=== PATIENT | male | born 1960 | race Caucasian/White ===

== ENCOUNTER 2021-05-13 21:55 | Inpatient (IN) ==
[2021-05-13 22:39] LABS: Basophils # (auto) 0.02 K/uL (0-0.2); Basophils % (auto) 0.3 %; Eosinophils # (auto) 0.14 K/uL (0-0.5); Hematocrit (blood only) 42.1 % (42-52); Hemoglobin 14.4 g/dL (14.0-18.0); Immature Granulocytes # (auto) 0.02 K/uL (0.00-0.02); Immature Granulocytes % (auto) 0.3 %; Lymphocytes # (auto) 2.42 K/uL (1.2-3.4); Lymphocytes % (auto) 34.6 %; Mean Corpuscular Hemoglobin 31.9 pg (25-34); Mean Corpuscular Hgb Conc 34.2 g/dL (32-36); Mean Corpuscular Volume 93.3 fL (80-100); Mean Platelet Volume 8.5 fL (7.4-10.4); Monocytes # (auto) 0.53 K/uL (0.11-0.59); Monocytes % (auto) 7.6 %; Neutrophils # (auto) 3.86 K/uL (1.4-6.5); Neutrophils % (auto) 55.2 %; Platelet Count 291 K/uL (130-400); RDW Coefficient of Variation 13.3 % (11.5-14.5); RDW Standard Deviation 45.8 fL (36.4-46.3); Red Blood Count 4.51 M/uL (4.7-6.1); White Blood Count 6.99 K/uL (4.8-10.8)
[2021-05-13 22:51] LABS: Partial Thromboplastin Time 25.8 Seconds (21.0-31.0); Prothrombin Time 10.1 Seconds (9.0-12.0)
[2021-05-13 22:58] LABS: Albumin Level 3.7 gm/dl (3.4-5.0); BUN Creatinine Ratio 10.4 (10-20); Calcium 8.4 mg/dl (8.5-10.1); Creatinine Clr Calc Pharmacy 76.3 ml/min; Est GFR (African American) 88.4 ml/min; Est GFR (Non-African American) 76.2 ml/min; Potassium 3.7 mmol/L (3.5-5.1)
[2021-05-13] MEDS ORDERED: fentaNYL citrate 100 MCG/2 ML VIAL IV STA (22:59)
[2021-05-13 23:01] LABS: Bilirubin,Total 0.3 mg/dl (0.2-1); Globulin 3.8 gm/dl (2.5-4.0); Total Protein 7.5 gm/dl (6.4-8.2)
--- NOTE | 2021-05-14 01:28 | History & Physical Report ---
Date of Service May 14, 2021 Assessment & Plan (1) Dislocated hip: Mr. Ford is a 61 yo gentleman who underwent a total left hip replacement two months ago who presented to [facility] after an acute dislocation of the artificial left hip. - left lower extremity remains neurovascularly intact - Ortho consulted - plan to reduce left hip in morning - NPO in anticipation of procedure - NSS at 125mls/hr. Ivey catheter placed as patient cannot get out of bed - prn morphine and Dilaudid ordered prn for analgesia (2) Alcoholic intoxication: - blood alcohol level elevated to 302mg/dl - NSS at 125 mls/hr. - patient has co-existent alcohol use disorder (21 + drinks per week) - AWSS protocol to monitor for withdrawal symptoms - folate and B12 level pending DVT ppx: Lovenox SQ Dispo: Med surg w. tele Diet: NPO Code: Full History of Present Illness Primary Care Provider: NO PCP Mr. Ford is a 61 yo gentleman who underwent a total left hip replacement 2 months ago - the procedure was apparently done by Dr. Cleaning from [facility]. Patient states the indication was for osteoarthritis. Earlier this evening, his dropped something - he bent down to pick it up for her, and his left hip popped, after which he had immediate onset of pain. His then called an ambulance. Prior to this incident, he says he has been rehabbing his left hip without difficulty. He is generally uncomfortable but has a difficult time articulating the nature of the discomfort. Social Hx: he is an occasional smoker. He drinks 3 beers per day. In the ED, he was afebrile with normal HR and BP. His WBC was normal, coags normal; calcium mildly low at 8.4. AST mildly elevated to 38. Eoth level was 302mg/dl. Xray of left hip showed a dislocation. He was given 50mcg of Iv fentanyl. Allergies Allergy/AdvReac Type Severity Reaction Status Date / Time No Known Allergies Allergy Verified 05/13/21 23:04 Home Medications Medication Instructions Recorded Confirmed Type cholecalciferol (vitamin D3) 50 mcg PO DAILY 05/13/21 05/13/21 History [Vitamin D3] ibuprofen 400 mg PO Q6H PRN 05/13/21 05/13/21 History turmeric 400 mg PO DAILY 05/13/21 05/13/21 History Past Med/Surg History Medical History Alcoholism Social History Smoking Status: Never smoker Hx Alcohol Use: Yes Alcohol type: beer Hx Substance Use: Yes Last Used Substance: Hours (ago) Preferred Language: Liberian Communication Ability: Effective Watch Technician Required: No Beliefs That Will Affect Care: None Current Living Situation: Significant Other Other Information That Helps Us Care for You: No Feels Safe at Home: Yes Safety Concerns: Feels Safe At This Time Assistive Devices: None Review of Systems Review of Systems: All systems reviewed & are unremarkable except as noted in HPI & below Physical Exam Constitutional: WD/WN, vitals as above cooperative Eyes: + anicteric sclerae ENMT: external ear and nose normal, oropharynx normal Neck: normal visual inspection and trachea midline Respiratory: normal respiratory effort, lungs clear to auscultation Cardiovascular: RRR, no murmur, no edema Heart Sounds: normal S1 and normal S2 Extremities: no pedal edema Gastrointestinal (Abdomen): normal bowel sounds, soft, nontender, no hepatosplenomegaly Musculoskeletal: Left LE is internally rotated. Patient does have intact sensation and peripheral pulses Skin: no rashes, warm and dry Psychiatric: A+Ox3, euthymic affect Results & Data Results & Data ([facility]) Vital Signs (Past 12 Hours) Vital Signs Temp Pulse Pulse Resp BP BP Pulse Ox 05/13/21 23:41 92 H 19 141/70 H 92 05/13/21 22:40 84 20 94 05/13/21 22:30 77 20 96 05/13/21 22:20 71 22 95 05/13/21 22:10 80 23 95 05/13/21 22:09 82 22 95 05/13/21 22:00 36.7 C 78 18 137/84 96 05/13/21 21:59 88 19 137/84 96 Supervising Physician Co-Signing Physician Notes Attending addendum: I have physically seen this patient, have supervised the medical residents activities, and agree with the H&P unless as otherwise noted. Assessment and Plan: Dislocated left total hip arthroplasty- NPO NSS at 125 mL's per hour Ivey catheter morphine and Dilaudid as needed for pain control as noted Alcohol intoxication- Level on admission was 302 IV fluids as noted AWSS protocol Thiamine 100 mg p.o. daily Folate 1 mg p.o. daily Nephrocaps 1 p.o. daily Remaining orders and notations as noted Resident Activity Tracking Resident Involvement: Resident Care Provided Care Provided: Adult [facility]
[2021-05-14] MEDS ORDERED: HYDROmorphone INJ 0.5 MG/0.5 ML SYR IV PRN (02:10)
[2021-05-14] MEDS ORDERED: MoRPHine SULFATE 2 MG/ML CARP IV PRN (02:10)
[2021-05-14] MEDS ORDERED: LORazepam 1 MG/2 ML VIAL IV PRN (02:10)
[2021-05-14] MEDS: SODIUM CHLORIDE 0.9% 1000ML 1,000 ML IV SCH ×2 (02:32→09:51)
--- NOTE | 2021-05-14 07:13 | Emergency Department Note ---
History of Present Illness General Chief complaint: Hip Pain Time Seen by Provider: 05/13/21 22:05 Source: patient Mode of arrival: EMS Limitations: intoxication History of Present Illness Maximum Pain Intensity: 10 This patient is a 61-year-old male who presents to the emergency department for evaluation of a left hip injury. Patient had a recent hip replacement performed 2 months ago at [facility] in [place]. He states that this evening, he was bending down and felt a pop in his left hip. He developed a sudden pain in the hip and has been unable to walk. He had been doing well with his recove ry up to this point. He rates his pain a 9/10. Patient is an alcoholic and admits to drinking vodka and beer prior to coming in [facility]. He denies falling and striking his head or sustaining any other injuries. He states that he sat down on the floor after developing the pain in his hip. Home Medications Medication Instructions Recorded Confirmed Type cholecalciferol (vitamin D3) 50 mcg PO DAILY 05/13/21 05/13/21 History [Vitamin D3] ibuprofen 400 mg PO Q6H PRN 05/13/21 05/13/21 History turmeric 400 mg PO DAILY 05/13/21 05/13/21 History Allergies Allergy/AdvReac Type Severity Reaction Status Date / Time No Known Allergies Allergy Verified 05/13/21 23:04 Past Med/Surg History Medical History Alcoholism Social History Smoking Status: Never smoker Hx Alcohol Use: Yes Alcohol type: beer Hx Substance Use: Yes Last Used Substance: Hours (ago) Preferred Language: Mongolian Communication Ability: Effective Crm Solution Architect Required: No Beliefs That Will Affect Care: None Current Living Situation: Significant Other Other Information That Helps Us Care for You: No Feels Safe at Home: Yes Safety Concerns: Feels Safe At This Time Assistive Devices: None Review of Systems A total of 10 systems reviewed and were otherwise negative Physical Exam Vital Signs Vital Signs - 24 hr 05/13/21 21:59 05/13/21 22:00 05/13/21 22:09 Temperature 36.7 C Temperature Source Oral Pulse Rate 88 78 82 Pulse Rate [Right Finger] Pulse Rate from SpO2 Sensor 88 83 Pulse Rhythm Regular Pulse Strength Normal Respiratory Rate 19 18 22 Respiratory Effort / Characteristics Non-Labored Spontaneous Respiratory Depth Normal Respiratory Pattern Regular Blood Pressure 137/84 137/84 Blood Pressure [Right Arm] Blood Pressure Mean 101 101 Blood Pressure Mean [Right Arm] Blood Pressure Position Lying Pulse Oximetry 96 96 95 Oxygen Delivery Method Room Air Sepsis Recent Fever Within 48 Hours No Sepsis New/Unexplained Change in Mental Status No Sepsis Action Taken by Nursing No Action Required 05/13/21 22:10 05/13/21 22:20 05/13/21 22:30 Temperature Temperature Source Pulse Rate 80 71 77 Pulse Rate [Right Finger] Pulse Rate from SpO2 Sensor 81 76 75 Pulse Rhythm Pulse Strength Respiratory Rate 23 22 20 Respiratory Effort / Characteristics Respiratory Depth Respiratory Pattern Blood Pressure Blood Pressure [Right Arm] Blood Pressure Mean Blood Pressure Mean [Right Arm] Blood Pressure Position Pulse Oximetry 95 95 96 Oxygen Delivery Method Sepsis Recent Fever Within 48 Hours Sepsis New/Unexplained Change in Mental Status Sepsis Action Taken by Nursing 05/13/21 22:40 05/13/21 23:00 05/13/21 23:30 Temperature Temperature Source Pulse Rate 84 90 87 Pulse Rate [Right Finger] Pulse Rate from SpO2 Sensor 87 Pulse Rhythm Pulse Strength Respiratory Rate 20 23 22 Respiratory Effort / Characteristics Respiratory Depth Respiratory Pattern Blood Pressure Blood Pressure [Right Arm] Blood Pressure Mean Blood Pressure Mean [Right Arm] Blood Pressure Position Pulse Oximetry 94 Oxygen Delivery Method Sepsis Recent Fever Within 48 Hours Sepsis New/Unexplained Change in Mental Status Sepsis Action Taken by Nursing 05/13/21 23:41 05/13/21 23:43 05/14/21 00:00 Temperature Temperature Source Pulse Rate 79 93 H Pulse Rate [Right Finger] 92 H Pulse Rate from SpO2 Sensor Pulse Rhythm Pulse Strength Respiratory Rate 19 20 20 Respiratory Effort / Characteristics Non-Labored Respiratory Depth Normal Respiratory Pattern Blood Pressure 147/98 H Blood Pressure [Right Arm] 141/70 H Blood Pressure Mean 114 Blood Pressure Mean [Right Arm] 93 Blood Pressure Position Pulse Oximetry 92 Oxygen Delivery Method Room Air Sepsis Recent Fever Within 48 Hours Sepsis New/Unexplained Change in Mental Status Sepsis Action Taken by Nursing 05/14/21 00:30 Temperature Temperature Source Pulse Rate 100 H Pulse Rate [Right Finger] Pulse Rate from SpO2 Sensor Pulse Rhythm Pulse Strength Respiratory Rate Respiratory Effort / Characteristics Respiratory Depth Respiratory Pattern Blood Pressure Blood Pressure [Right Arm] Blood Pressure Mean Blood Pressure Mean [Right Arm] Blood Pressure Position Pulse Oximetry Oxygen Delivery Method Sepsis Recent Fever Within 48 Hours Sepsis New/Unexplained Change in Mental Status Sepsis Action Taken by Nursing VITALS: Vitals are noted on the nurse's note and reviewed by myself. GENERAL: This is a 61-year-old male, in no acute distress, well-developed well- nourished. SKIN: The skin was without rashes. EARS: External auditory canals clear, tympanic membranes pearly moses without erythema or effusion bilaterally. EYES: Pupils equal round and reactive to light and accommodation. NOSE: Patent, turbinates without inflammation or discharge. MOUTH: Mucous membranes moist. Tonsils are not enlarged. Pharynx without erythema or exudate. NECK: Supple without nuchal rigidity. HEART: Regular rate and rhythm without murmurs gallops or rubs. LUNGS: Clear to auscultation bilaterally without wheezes, rales or rhonchi. ABDOMEN: Positive bowel sounds x 4. Soft, nontender to palpation. MUSCULOSKELETAL: The left leg is shortened and internally rotated. Patient has tenderness to palpation of the left hip. Patient is unable to move at the left hip. NEURO: Patient was alert and oriented to person place and time. Distal sensation intact. Course Consultations Consultation #1: Dr. [facility] Consultation #2: Dr. Bernal [facility] hospitalist Administered Medications Sodium Chloride (Nss 1000ml) 1,000 mls @ 125 mls/hr IV .Q8H [facility] Stop: 06/13/21 02:09 Last Admin: 05/14/21 02:32 Dose: 125 mls/hr Documented by: [id number] Discontinued Medications Fentanyl Citrate (Fentanyl Citrate 100 Mcg/2 Ml Vial) 50 mcg IV NOW STA Stop: 05/13/21 23:00 Last Admin: 05/13/21 23:08 Dose: 50 mcg Documented by: [id number] Medical Decision Making Differential Diagnosis Differential diagnosis includes femur fracture, hip dislocation, pelvic fracture, among others. Home Medications Current Medication List: was personally reviewed by me Laboratory Data Attestation: I reviewed the patient's lab results. Result diagrams: 05/13/21 22:30 05/13/21 22:30 Lab Results 05/13/21 05/13/21 05/13/21 Range/Units 22:30 22:30 22:30 WBC 6.99 (4.8-10.8) K/uL RBC 4.51 L (4.7-6.1) M/uL Hgb 14.4 (14.0-18.0) g/dL Hct 42.1 (42-52) % MCV 93.3 (80-100) fL MCH 31.9 (25-34) pg MCHC 34.2 (32-36) g/dL RDW Std Deviation 45.8 (36.4-46.3) fL RDW Coeff of Josue 13.3 (11.5-14.5) % Plt Count 291 (130-400) K/uL MPV 8.5 (7.4-10.4) fL Immature Gran % (Auto) 0.3 % Neut % (Auto) 55.2 % Lymph % (Auto) 34.6 % [place] % (Auto) 7.6 % Eos % (Auto) 2.0 % Baso % (Auto) 0.3 % Neut # (Auto) 3.86 (1.4-6.5) K/uL Lymph # (Auto) 2.42 (1.2-3.4) K/uL [place] # (Auto) 0.53 (0.11-0.59) K/uL Eos # (Auto) 0.14 (0-0.5) K/uL Baso # (Auto) 0.02 (0-0.2) K/uL Immature Gran # (Auto) 0.02 (0.00-0.02) K/uL PT 10.1 (9.0-12.0) Seconds INR 1.0 (0.9-1.1) APTT 25.8 (21.0-31.0) Seconds PTT Ratio 1.0 Sodium (136-145) mmol/L Potassium (3.5-5.1) mmol/L Chloride (98-107) mmol/L Carbon Dioxide (21-32) mmol/L Anion Gap (3-11) BUN (7-18) mg/dl Creatinine (0.6-1.4) mg/dl Est Cr Clr Drug Dosing ml/min Est GFR ( Amer) ml/min Est GFR (Non-Af Amer) ml/min BUN/Creatinine Ratio (10-20) Glucose (70-99) mg/dl Calcium (8.5-10.1) mg/dl Total Bilirubin (0.2-1) mg/dl AST (15-37) U/L ALT (12-78) U/L Alkaline Phosphatase (45-117) U/L Total Protein (6.4-8.2) gm/dl Albumin (3.4-5.0) gm/dl Globulin (2.5-4.0) gm/dl Albumin/Globulin Ratio (0.9-2) Ethyl Alcohol mg/dL 302.6 H (0-3) mg/dl COVID-19 Eval Order SARS-CoV-2 (PCR) (Negative) 05/13/21 05/14/21 05/14/21 Range/Units 22:30 00:02 00:02 WBC (4.8-10.8) K/uL RBC (4.7-6.1) M/uL Hgb (14.0-18.0) g/dL Hct (42-52) % MCV (80-100) fL MCH (25-34) pg MCHC (32-36) g/dL RDW Std Deviation (36.4-46.3) fL RDW Coeff of Josue (11.5-14.5) % Plt Count (130-400) K/uL MPV (7.4-10.4) fL Immature Gran % (Auto) % Neut % (Auto) % Lymph % (Auto) % [place] % (Auto) % Eos % (Auto) % Baso % (Auto) % Neut # (Auto) (1.4-6.5) K/uL Lymph # (Auto) (1.2-3.4) K/uL [place] # (Auto) (0.11-0.59) K/uL Eos # (Auto) (0-0.5) K/uL Baso # (Auto) (0-0.2) K/uL Immature Gran # (Auto) (0.00-0.02) K/uL PT (9.0-12.0) Seconds INR (0.9-1.1) APTT (21.0-31.0) Seconds PTT Ratio Sodium 140 (136-145) mmol/L Potassium 3.7 (3.5-5.1) mmol/L Chloride 107 (98-107) mmol/L Carbon Dioxide 29 (21-32) mmol/L Anion Gap 4.0 (3-11) BUN 11 (7-18) mg/dl Creatinine 1.05 (0.6-1.4) mg/dl Est Cr Clr Drug Dosing 76.3 ml/min Est GFR ( Amer) 88.4 ml/min Est GFR (Non-Af Amer) 76.2 ml/min BUN/Creatinine Ratio 10.4 (10-20) Glucose 105 H (70-99) mg/dl Calcium 8.4 L (8.5-10.1) mg/dl Total Bilirubin 0.3 (0.2-1) mg/dl AST 38 H (15-37) U/L ALT 54 (12-78) U/L Alkaline Phosphatase 58 (45-117) U/L Total Protein 7.5 (6.4-8.2) gm/dl Albumin 3.7 (3.4-5.0) gm/dl Globulin 3.8 (2.5-4.0) gm/dl Albumin/Globulin Ratio 1.0 (0.9-2) Ethyl Alcohol mg/dL (0-3) mg/dl COVID-19 Eval Order Covid19 at [facility] SARS-CoV-2 (PCR) NEGATIVE (Negative) Imaging Data Attestation: I personally reviewed and interpreted this imaging study as follows: My Impression: LEFT HIP: Dislocation of left hip arthroplasty. ECG Data Attestation: I personally reviewed and interpreted this ECG as follows: Indication: + other Rate (beats per minute): 72 Rhythm: + normal sinus ECG Intervals/blocks: + Normal QRS ECG ST segments: + Normal ST segments Change: no significant change MDM Narrative Continuous cardiac/vascular sonographer: Order was placed for continuous cardiac/vascular sonographer. Patient was placed on the cardiac/vascular sonographer. Patient was noted to be in normal sinus rhythm at an initial rate of 88 bpm. The patient is a 61-year-old male who presents today for evaluation of left hip pain. Patient found to have a dislocation of his left hip arthroplasty. Unfortunately, patient is intoxicated and it would be 10 hours until he is clear for sedation. Patient is alcohol dependent and I am concerned there will also be an element of withdrawal. Given these complicating factors, I did speak with orthopedics who recommended admitting the patient medically and they will take him to the OR tomorrow. Patient was agreeable with the plan. The case was discussed with the [facility] hospitalist who agreed to evaluate the patient for further care. Impression & Plan Hip dislocation, left, Alcoholic intoxication Discharge Plan Visit Data Chief Complaint: Hip Pain ED Provider: Dustin Montez ED Midlevel Provider: Justine Vora Discharge Problem: Hip dislocation, left, Alcoholic intoxication Patient Disposition: Admitted As Inpatient Discharge Instructions Interventions: ED Discharge Assessment Last Done: 05/14/21 01:43 Discharge Problem: Hip dislocation, left Qualifiers: Encounter type: initial encounter Qualified Code(s): S73.005A - Unspecified d islocation of left hip, initial encounter Alcoholic intoxication Qualifiers: Complication of substance-induced condition: uncomplicated Qualified Code(s): F10.920 - Alcohol use, unspecified with intoxication, uncomplicated
--- NOTE | 2021-05-14 07:15 | XRay Report ---
XR hip LT min 2V CLINICAL HISTORY: left hip injury, recent replacement COMPARISON: None. DISCUSSION: 2 views reveal a dislocated total left hip arthroplasty. No acute fractures are visualize d. IMPRESSION: Posterior superior dislocation of the patient's total left hip arthroplasty ACT 112: Negative or not required by law. Electronically signed by: Thien Tidwell M.D. 05/14/2021 7:14 AM
[2021-05-14] MEDS ORDERED: KETOROLAC 30 MG/ML VIAL IV ONE (08:06)
[2021-05-14 08:16] LABS: Albumin Level 3.6 gm/dl (3.4-5.0); BUN Creatinine Ratio 10.7 (10-20); Calcium 8.1 mg/dl (8.5-10.1); Creatinine Clr Calc Pharmacy 94.2 ml/min
--- NOTE | 2021-05-14 08:17 | Orthopedic Consultation ---
Date of Consultation May 14, 2021 Assessment & Plan (1) Hip dislocation, left: Left GIUSEPPE dislocation. No obvious fractures are identified. X-rays reviewed with . Maintain n.p.o. status. Plan for close reduction of dislocated left GIUSEPPE today. Supervising Physician Co-Signing Physician Notes Patient seen and examined. Agree with PAT Denton's note as above. Patient has a left dislocated total hip arthroplasty. No evidence of periprosthetic fracture or loosening of the implants. I recommended urgent reduction to reduce pain and restore the ability to ambulate. Risks, benefits, and alternatives of the procedure were explained in detail. Risks include fracture, hardware displacement, irreducible dislocation requiring open reduction, recurrent dislocation, persistent pain or stiffness, or need for further surgery. The patient understands all of this and wishes to proceed. Informed consent was obtained. History of Present Illness Reason for Consultation: left GIUSEPPE dislocation Attending Physician: Philip Mosley History of Present Illness Patient is a 61-year-old male who states that he underwent left total hip arthroplasty by Dr. Cleaning in early January of this year. Patient apparently had a normal recovery and has had no problems with his hip. Patient states he does not remember what happened. He apparently was drinking alcohol and thinks he had fallen down. He does not remember anything about the incident. He does remember feeling the pain after the incident and was having difficulty ambulating because of it. He was brought into the emergency room here at [facility] where after x-rays, was found that he had a dislocated left GIUSEPPE. The patient's alcohol level was significant enough that the emergency room was unable to give him any conscious sedation due to risk factors to do a closed reduction of the hip. He was admitted to the hospitalist service and we have been asked to take care of his left GIUSEPPE dislocation. Currently this morning he is awake and alert and oriented x3. He continues to not remember what happened with the incident however he is complaining of left hip pain and is hoping to get his hip relocated soon. No other complaints at this time. Allergies Allergy/AdvReac Type Severity Reaction Status Date / Time No Known Allergies Allergy Verified 05/13/21 23:04 Home Medications Medication Instructions Recorded Confirmed Type cholecalciferol (vitamin D3) 50 mcg PO DAILY 05/13/21 05/13/21 History [Vitamin D3] ibuprofen 400 mg PO Q6H PRN 05/13/21 05/13/21 History turmeric 400 mg PO DAILY 05/13/21 05/13/21 History Patient History Medical History Alcoholism Social History Smoking Status: Never smoker Hx Alcohol Use: Yes Alcohol type: beer Hx Substance Use: Yes Last Used Substance: Hours (ago) Preferred Language: Irish Communication Ability: Effective Auto Garage Mechanic Required: No Beliefs That Will Affect Care: None Current Living Situation: Significant Other Other Information That Helps Us Care for You: No Feels Safe at Home: Yes Safety Concerns: Feels Safe At This Time Assistive Devices: None Review of Systems Review of Systems: All systems reviewed & are unremarkable except as noted in HPI & below Physical Exam Physical Exam: Patient is currently awake and alert. Oriented x3. Complaining of left hip pain. Pleasant and cooperative. No acute distress. On examination of his left lower extremity, the extremity is shortened and internally rotated compared to the right. Any attempts to move the left hip causes him severe pain. He is nontender at the left knee and range of motion is deferred secondary to left hip dislocation. He has good range of motion of his left ankle and toes and sensation is intact. Right lower extremity is unaffected and range of motion is within normal limits. Upper extremities are nontender at the shoulders, elbows, and wrists. Range of motion is within normal limits. Distal pulses are equal bilaterally of the upper and lower extremities. There is no gross motor or sensory loss seen at this time. Results & Data ([facility]) Vital Signs (Past 12 Hours) Vital Signs Temp Pulse Pulse Pulse Resp BP BP 05/14/21 04:09 36.9 C 103 H 18 158/80 H 05/14/21 02:13 36.7 C 102 H 21 160/95 H 05/14/21 02:11 102 H 05/14/21 01:30 98 H 24 147/96 H 05/14/21 01:00 102 H 25 H 05/14/21 00:30 100 H 05/14/21 00:00 93 H 20 05/13/21 23:43 79 20 147/98 H 05/13/21 23:41 92 H 19 141/70 H 05/13/21 23:30 87 22 05/13/21 23:00 90 23 05/13/21 22:40 84 20 05/13/21 22:30 77 20 05/13/21 22:20 71 22 05/13/21 22:10 80 23 05/13/21 22:09 82 22 05/13/21 22:00 36.7 C 78 18 137/84 05/13/21 21:59 88 19 137/84 Pulse Ox 05/14/21 04:09 100 05/14/21 02:13 97 05/14/21 02:11 05/14/21 01:30 05/14/21 01:00 05/14/21 00:30 05/14/21 00:00 05/13/21 23:43 05/13/21 23:41 92 05/13/21 23:30 05/13/21 23:00 05/13/21 22:40 94 05/13/21 22:30 96 05/13/21 22:20 95 05/13/21 22:10 95 05/13/21 22:09 95 05/13/21 22:00 96 05/13/21 21:59 96 Diagnostic Findings Patient: TOMMY JOHN AAdmit Date: 05/14/21MR#: [id number][facility] [id number] [facility][id number]: [facility]: 1960[facility] [place], [place] [address]Vju: 61Location: 2WSex: MRoom/Bed: [address] Phy: Shay eBrnal M.D.Diagnosis: DISLOCATED HIPPri Phy: PCP,NOService Date: 05/13/21Fam Phy:Interpreting Phy: Thien Tidwell MDAdmit Phy: Rea Hernandez MD Ordering Phy: Justine Vora PA-C cc: ~ XR hip LT min 2V CLINICAL HISTORY: left hip injury, recent replacement COMPARISON: None. DISCUSSION: 2 views reveal a dislocated total left hip arthroplasty. No acute fractures are visualized. IMPRESSION: Posterior superior dislocation of the patient's total left hip arthroplasty (1) Hip dislocation, left Encounter type: initial encounter Qualified Code(s): S73.005A - Unspecified dislocation of left hip, initial encounter
[2021-05-14 08:19] LABS: Albumin Globulin Ratio 0.9 (0.9-2); Bilirubin,Total 0.3 mg/dl (0.2-1); Globulin 3.9 gm/dl (2.5-4.0); Total Protein 7.5 gm/dl (6.4-8.2)
[2021-05-14 08:22] LABS: Folate (Folic Acid) 8.1 ng/ml (>5.38)
[2021-05-14] MEDS ORDERED: fentaNYL citrate 100 MCG/2 ML VIAL IV PRN (13:53)
[2021-05-14] MEDS ORDERED: HYDROmorphone INJ 2 MG/ML SYR/VIAL IV PRN (13:53)
[2021-05-14] MEDS ORDERED: ONDANSETRON INJ 2 MG/ML 2 ML VIAL IV PRN ×2 (13:53→16:54)
[2021-05-14] MEDS ORDERED: ATROPINE SULFATE 0.1 MG/ML 10ML SYR IV PRN (13:53)
[2021-05-14] MEDS ORDERED: ePHEDrine sulfate 50 MG/ML AMP IV PRN (13:53)
--- NOTE | 2021-05-14 13:53 | Anesthesiology Consultation ---
Date of Service May 14, 2021 Assessment & Plan Chart Review Chart Review: Acceptable Risk for Surgery Consults Requested none History Surgery Operation Date: 05/14/21 12:55 Proposed Procedures p Left Closed Reduction Dislocated Total Hip Arthroplasty - Francis Mascorro M.D. Height/Weight Height: 5 ft 10 in Weight: 81.1 kg Allergies Allergy/AdvReac Type Severity Reaction Status Date / Time No Known Allergies Allergy Verified 05/13/21 23:04 Medications Home Medications Medication Instructions Recorded Confirmed Last Taken cholecalciferol (vitamin D3) 50 mcg PO DAILY 05/13/21 05/13/21 05/13/21 [Vitamin D3] ibuprofen 400 mg PO Q6H PRN 05/13/21 05/13/21 Unknown turmeric 400 mg PO DAILY 05/13/21 05/13/21 05/13/21 Active Medications Generic Name Dose Route Start Last Admin Trade Name Freq PRN Reason Stop Dose Admin Sodium Chloride 1,000 mls @ 125 mls/hr 05/14/21 02:10 05/14/21 09:51 Nss 1000ml IV 06/13/21 02:09 125 mls/hr .Q8H ERICKA Administration NPO Date Last Intake of Fluids: 05/14/21 Time Last Intake of Fluids: 00:01 Date Last Intake of Solids: 05/14/21 Time Last Intake of Solids: 00:01 Past Medical History Medical History Alcoholism Social History Smoking Status: Never smoker Hx Alcohol Use: Yes Alcohol type: beer alcohol intake frequency: 3 or more drinks per day Hx Substance Use: Yes substance use type: marijuana Last Used Substance: Hours (ago) Physical Exam Vital Signs Last Vital Signs Temp 37.3 C 05/14/21 13:40 Pulse 101 H 05/14/21 13:40 Resp 20 05/14/21 13:40 BP 170/98 H 05/14/21 13:40 Pulse Ox 95 05/14/21 13:40 Testing Laboratory Results 05/13/21 22:30 05/14/21 06:59 PT 10.1 Seconds (9.0-12.0) 05/13/21 22:30 INR 1.0 (0.9-1.1) 05/13/21 22:30 APTT 25.8 Seconds (21.0-31.0) 05/13/21 22:30
--- NOTE | 2021-05-14 15:03 | History & Physical Bridge Note ---
Date of Service May 14, 2021 History & Physical Bridge Note I have examined the patient, reviewed the History & Physical and in the interval since the performance of the History & Physical I have noted the following changes of clinical significance: no changes noted
[2021-05-14] MEDS ORDERED: PROPOFOL IV EMULSION 10 MG/ML 20 ML VIAL IV ONE (15:07)
[2021-05-14] MEDS ORDERED: MIDAZOLAM HCL 1 MG/ML 2ML VIAL ONE (15:09)
[2021-05-14] MEDS ORDERED: KETAMINE 50 MG/5 ML SYRINGE ONE (15:10)
[2021-05-14] MEDS ORDERED: fentaNYL citrate 100 MCG/2 ML VIAL ONE (15:10)
[2021-05-14] MEDS ORDERED: DEXAMETHASONE SOD INJ 4 MG/ML VIAL ONE (15:25)
--- NOTE | 2021-05-14 15:49 | Post Operative Brief Note ---
Immediate Post Op Note v1 Date of Surgery May 14, 2021 Pre & Post Diagnosis Operation Date: 05/14/21 12:55 Pre-Op Diagnosis: Left hip dislocated total hip arthroplasty Post-Op Diagnosis: Left hip dislocated total hip arthroplasty I identified the patient and participated in the time-out.: Yes Procedure Operation Date: 05/14/21 12:55 Actual Procedures Left Hip Closed Reduction Dislocated Total Hip Arthroplasty - Francis Mascorro M.D. Surgeon Francis Mascorro Aligning Inspector Morteza Grey PA-C Estimated Blood Loss 0 Findings Consistent with Post-Op Diagnosis
--- NOTE | 2021-05-14 15:55 | Operative Report ---
Post Operative Report Pre & Post Diagnosis Operation Date: 05/14/21 12:55 Pre-Op Diagnosis: Left hip dislocated total hip arthroplasty Post-Op Diagnosis: Left hip dislocated total hip arthroplasty I identified the patient and participated in the time-out.: Yes Procedure Operation Date: 05/14/21 12:55 Actual Procedures Left Hip Closed Reduction of Dislocated Total Hip Arthroplasty (11220) - Francis Mascorro M.D. Surgeon Francis Mascorro Skid Adzer Morteza Grey PA-C Estimated Blood Loss 0 Findings Consistent with Post-Op Diagnosis Specimens None Drains None Anesthesia Type MAC Complications none Disposition Disposition: Recovery Room Indications Mr. Ford is a 61-year-old male who previously underwent a left total hip arthroplasty about [address] Cleaning. He was intoxicated and fell and dislocated his left total hip, but has no recollection of the event. History, clinical exam, and imaging were consistent with the above diagnosis. Risks, benefits, and alternatives of surgery were explained in detail. The patient understood all this and wished to proceed. Description of Procedure Sedation was then provided by the anesthesia staff. After adequate anesthesia had been obtained, I had an assistant store manager sales hold counter pressure on the ASIS well I pulled longitudinal traction on the femur with the hip and knee in flexion. I internally rotated and adducted the hip while pulling longitudinal traction, and was able to visualize and palpate reduction of the hip joint. I then extended the leg and examined leg lengths. Leg length was restored to normal. Postreduction x-rays confirmed concentric reduction of the total hip arthroplasty, without evidence of fracture or displacement of the prosthetic components. Due to the complex nature of the procedure, the procedure was performed with the operational assistance of Morteza Grey PA-C. The assistant store manager sales, under direct supervision, was involved in the performance of all aspects of the procedure including patient positioning, counter traction, and immobilizer application. I attest to the content of the Intraoperative Record and any orders documented therein. Any exceptions are noted below.
--- NOTE | 2021-05-14 15:57 | Fluoroscopy Report ---
FL hip LT 1V CLINICAL HISTORY: Left hip closed reduction. COMPARISON STUDY: Left hip radiographs May 13, 2021. FLUOROSCOPY TIME: 1 second. FLUOROSCOPIC IMAGES: 1 FINDINGS: Fluoroscopy was provided during closed reduction of the left hip arthroplasty. Alignment is anatomic. The femoral component is seated within the acetabular cup. IMPRESSION: Fluoroscopy provided during closed reduction of the left hip arthroplasty. ACT 112: Negative or not required by law. Electronically signed by: Jimenez Cason M.D. 05/14/2021 3:55 PM
--- NOTE | 2021-05-14 16:02 | Anesthesiology Progress Note ---
Date of Service May 14, 2021 Anesthesia Post Procedure Vital Signs Vital Signs: Temp Pulse Pulse Pulse Pulse Resp BP 05/14/21 15:55 91 H 14 05/14/21 15:45 99.0 F 102 H 22 05/14/21 13:40 99.1 F 101 H 20 05/14/21 11:18 98.8 F 105 H 18 05/14/21 08:43 98.1 F 105 H 19 05/14/21 08:00 103 H 05/14/21 04:09 98.4 F 103 H 18 05/14/21 02:13 98.1 F 102 H 21 05/14/21 02:11 102 H 05/14/21 01:30 98 H 24 147/96 H 05/14/21 01:00 102 H 25 H 05/14/21 00:30 100 H 05/14/21 00:00 93 H 20 05/13/21 23:43 79 20 147/98 H 05/13/21 23:41 92 H 19 05/13/21 23:30 87 22 05/13/21 23:00 90 23 05/13/21 22:40 84 20 05/13/21 22:30 77 20 05/13/21 22:20 71 22 05/13/21 22:10 80 23 05/13/21 22:09 82 22 05/13/21 22:00 98.1 F 78 18 137/84 05/13/21 21:59 88 19 137/84 BP Pulse Ox 05/14/21 15:55 167/94 H 99 05/14/21 15:45 164/97 H 99 05/14/21 13:40 170/98 H 95 05/14/21 11:18 157/85 H 95 05/14/21 08:43 169/101 H 96 05/14/21 08:00 05/14/21 04:09 158/80 H 100 05/14/21 02:13 160/95 H 97 05/14/21 02:11 05/14/21 01:30 05/14/21 01:00 05/14/21 00:30 05/14/21 00:00 05/13/21 23:43 05/13/21 23:41 141/70 H 92 05/13/21 23:30 05/13/21 23:00 05/13/21 22:40 94 05/13/21 22:30 96 05/13/21 22:20 95 05/13/21 22:10 95 05/13/21 22:09 95 05/13/21 22:00 96 05/13/21 21:59 96 Pain Intensity Left Hip: Pain Intensity: 5 Transfer of Care Handoff Completed per policy Notes Mental Status: alert / awake / arousable and participated in evaluation Patient Amnestic to Procedure: Yes Nausea / Vomiting: adequately controlled Pain: adequately controlled Airway Patency, RR, SpO2: stable & adequate BP & HR: stable & adequate Hydration State: stable & adequate Anesthetic Complications: no major complications apparent and Pt Satisfied with anesthetic care
[2021-05-14] MEDS ORDERED: MAGNESIUM HYDROXIDE SUSP 30 ML UDC PO PRN (16:54)
[2021-05-14] MEDS ORDERED: NALOXONE HCL 0.4 MG/1 ML VIAL/CARP IV PRN (16:54)
[2021-05-14] MEDS ORDERED: traMADol HCL 50 MG TABLET PO PRN (16:54)
[2021-05-14] MEDS ORDERED: bisacodyL 10 MG SUPP PR PRN (16:54)
--- NOTE | 2021-05-15 06:08 | Billing Data ---
Date of Service May 15, 2021 Coding Level of Care Code 46526 Initial Inpt Care Lvl 2
[2021-05-15] MEDS ORDERED: MULTIVITAMIN TAB PO SCH (09:00)
--- NOTE | 2021-05-15 10:23 | Orthopedic Progress Note ---
Date of Service May 15, 2021 Assessment & Plan (1) Dislocated hip: Postop day 1 status post post reduction of left GIUSEPPE dislocation PT/OT weightbearing as tolerated with immobilizer. Therapy has given their blessing for him to be discharged. Patient to follow total hip precautions until seen in the office for recheck. Patient can resume light duty work next week. Follow-up with Dr. Conrad in 1 week. Admission and Anticipated Discharge Date Admission Date: May 14, 2021 Subjective Patient awake and alert. No complaints this morning pain is controlled. No que stions about post dislocation. And hip precautions. All questions answered to the best of my ability. I spoke to physical therapist who said the patient did very well and feels that from his standpoint, the patient can be discharged. Physical Exam Physical Exam: Immobilizer on the left knee and left on during exam leg lengths appear equal. Hip appears to be located. Neurovascular is intact. Results & Data ([facility]) Vital Signs (Past 12 Hours) Vital Signs Temp Pulse Pulse Resp BP Pulse Ox 05/15/21 08:47 36.6 C 83 18 155/86 H 98 05/15/21 03:13 36.7 C 92 H 18 154/94 H 96 05/15/21 00:00 76 05/14/21 22:55 36.5 C 88 18 152/89 H 97
--- NOTE | 2021-05-17 19:09 | Discharge Summary ---
Date of Service May 15, 2021 Admission HPI Per Admitting Provider Mr. Ford is a 61 yo gentleman who underwent a total left hip replacement 2 months ago - the procedure was apparently done by Dr. Cleaning from [facility]. Patient states the indication was for osteoarthritis. Earlier this evening, his dropped something - he bent down to pick it up for her, and his left hip popped, after which he had immediate onset of pain. His then called an ambulance. Prior to this incident, he says he has been rehabbing his left hip without difficulty. He is generally uncomfortable but has a difficult time articulating the nature of the discomfort. Social Hx: he is an occasional smoker. He drinks 3 beers per day. In the ED, he was afebrile with normal HR and BP. His WBC was normal, coags normal; calcium mildly low at 8.4. AST mildly elevated to 38. Eoth level was 302mg/dl. Xray of left hip showed a dislocation. He was given 50mcg of Iv fentanyl. Principal Diagnosis dislocated hip Discharge Exam Constitutional: WD/WN, vitals as above cooperative Eyes: + anicteric sclerae ENMT: external ear and nose normal, oropharynx normal Neck: normal visual inspection and trachea midline Respiratory: normal respiratory effort, lungs clear to auscultation Cardiovascular: RRR, no murmur, no edema Heart Sounds: normal S1 and normal S2 Extremities: no pedal edema Gastrointestinal (Abdomen): normal bowel sounds, soft, nontender, no hepatosplenomegaly Skin: no rashes, warm and dry Psychiatric: A+Ox3, euthymic affect Discharge Data Allergies Allergy/AdvReac Type Severity Reaction Status Date / Time No Known Allergies Allergy Verified 05/13/21 23:04 Consultations 05/14/21 01:06 ED Decision to Admit Stat 05/14/21 02:10 Consult Orthopedic Surgery Routine Procedures Performed Operation Date: 05/14/21 12:55 Actual Procedures p Left Closed Reduction Dislocated Total Hip Arthroplasty - Francis Mascorro M.D. Ordered Studies 05/14/21 FL hip LT 1V Routine Hospital Course (1) Dislocated hip: Mr. Ford is a 61 yo gentleman who underwent a total left hip replacement two months ago who presented to [facility] after an acute dislocation of the artificial left hip. - left lower extremity remains neurovascularly intact - Ortho consulted - had a closed reduction -continue total hip precautions and followup with ortho as stated below. (2) Alcoholic intoxication: - blood alcohol level elevated to 302mg/dl -no signs of withdrawal- Patient not interested in quitting Total Time Total Time Spent Total Time Spent (In Minutes): 32 Total Time Includes: Examination of the Patient, Discharge Planning and Medication Reconciliation Discharge Plan Discharge Items Patient Disposition: Home - Self-Care Reason For Visit: DISLOCATED HIP Discharge Diagnosis: dislocated hip Activity: Per Instructions section Weightbearing: Left weightbearing Weightbearing Comment: As tolerated with immobilizer on the left knee. Non-emergency contact: Primary Care Provider Call non-emergency contact if: you have any medication questions Follow-up/Referrals: Mike Cleaning DO [Physician] - (Follow up in one week ) PCP,NO [Primary Care Provider] - Diet: Regular Addtl Attending Provider Instructions: recommend alcohol cessation. followup with PCP in 1-2 weeks . Needs to follow up with Dr. Cleaning in the next week. Addtl Superintendent Meter Tests Provider Instructions: Continue to follow total hip precautions until seen by Dr. Cleaning in the office. He must continue to wear the immobilizer on her knee at all times when ambulating and getting in and out of bed. May remove for changing clothes or bathing. You must follow total hip precautions you had after your original surgery. ACTIVITY RECOMMENDATIONS: SELF CARE INSTRUCTIONS AFTER TOTAL HIP REPLACEMENT Until the incision and soft tissues around your hip have healed, there is a possibility that the hip prosthesis could dislocate. A. Observe the following precautions to prevent dislocation: 1. Don't bend your hip greater than 90 degrees. 2. Avoid crossing your legs or ankles while standing or lying. 3. Sit with your feet placed 6 inches apart. 4. When sitting, keep your knees below your hips. Sit on a firm surface, avoid deep, soft chairs and couches. Use an elevated toilet seat in the bathroom. 5. Don't bend over at the waist. Use a long handled shoehorn and a sock aid to help you put on your shoes and socks. A manager clinical informatics can help you fruit picker objects that are too high or too low to reach. 6. Keep car riding to a minimum for at least one month after surgery. B. Your balance may be shaky for a while. Use crutches or a walker until directed by your doctor. C. Use hand rails when walking on stairs. D. Wear low heeled shoes with non-slip soles. E. Be sure that your floors are free of things that could trip you - throw rugs, electrical cords, small objects. Avoid wet and waxed floors, especially with crutches and canes. F. Try to walk several times a day with rest periods between. G. Continue with all the exercises taught to you in the hospital. Again, make walking a part of your daily routine. SPECIAL CARE INSTRUCTIONS: VERY IMPORTANT TO READ AND REVIEW A. You may still be at risk for phlebitis and blood clots. 1. Wear surgical stockings (ADRIANA hose) for 2 weeks after surgery to improve circulation and reduce swelling. B. You must take antibiotics before having dental work, bladder, bowel and other surgery. Your doctor will provide you with a permanent card to carry describing precautions. C. Call [facility] if you have a fever, redness or swelling around the incision, cloudy drainage from incision, or sudden increase in pain in your hip, not relieved by your regular pain medication. D. Please call the office at if you have any concerns or questions about your operation or recovery. * WEAR ADRIANA HOSE 20 HOURS PER DAY FOR 2 WEEKS. * YOU SHOULD USE A WALKER OR CRUTCHES FOR 2-4 WEEKS. THIS WILL HELP PREVENT STRAIN ON YOUR HIP MUSCLE AND ALLOW IT TO HEAL PROPERLY. YOU MAY WEAN TO A CANE TOLERATED. FOLLOW UP VISIT: If appointment is not already scheduled: Please call [facility] to make a follow-up appointment with Dr. Fish To be seen in the next week. . Pending Studies at Discharge: No Stand-Alone Forms: My [employer] Call, Smoking Cessation Medications and DC Order Prescriptions: Continued ibuprofen 200 mg Tablet 400 mg PO Q6H PRN (Reason: Pain) RF: 0 cholecalciferol (vitamin D3) [Vitamin D3] 50 mcg (2,000 unit) Capsule 50 mcg PO DAILY RF: 0 Discontinued turmeric 400 mg Capsule 400 mg PO DAILY RF: 0 Discharge Orders: Discharge Order (Routine); Ordered 05/15/21 Ordered By: Philip Mosley Admission Data Admit Date/Time: 05/14/21 00:58 Attending Provider: Philip Mosley Admit Provider: Rea Hernandez Primary Care Provider: PCP,NO Other Providers: Shay Bernal ; Gray Payne Other Interventions: Discharge Summary Assessment (RN) Last Done: 05/15/21 11:15 Coding Level of Care Code D/C Day Management >30 mins Diagnoses Dislocated hip S73.006A Alcoholic intoxication F10.920 Complication of substance-induced condition: uncomplicated
== END 2021-05-15 12:07 | disposition home or self-care (01) | DRG 561 ==
LOC: ED 21:55 → 2W 05-14 00:58 → SUATTDRO 05-14 00:58 → 2W 05-14 01:43

== ENCOUNTER 2021-10-10 21:33 | Observation (INO) ==
[2021-10-10] MEDS ORDERED: fentaNYL citrate 100 MCG/2 ML VIAL IV STA (22:10)
--- NOTE | 2021-10-10 22:10 | XRay Report ---
LEFT HIP 2 VIEWS CLINICAL HISTORY: Fall. Hip dislocation. FINDINGS: 2 portable views of the left hip are compared to study dated 07/25/2021. The skeletal struct ures appear osteopenic. A bipolar left hip arthroplasty is in place. There has been dislocation of th e femoral component of the arthroplasty. Mild overlying soft tissue edema is noted. No fracture is id entified. IMPRESSION: 1. Dislocated left hip arthroplasty. 2. No fracture is identified. Electronically signed by: Robert Valentine M.D. 10/10/2021 10:09 PM
[2021-10-10 22:38] LABS: Basophils # (auto) 0.02 K/uL (0-0.2); Basophils % (auto) 0.4 %; Eosinophils # (auto) 0.09 K/uL (0-0.5); Eosinophils % (auto) 1.6 %; Hematocrit (blood only) 44.5 % (42-52); Immature Granulocytes # (auto) 0.01 K/uL (0.00-0.02); Immature Granulocytes % (auto) 0.2 %; Lymphocytes # (auto) 1.47 K/uL (1.2-3.4); Lymphocytes % (auto) 25.8 %; Mean Corpuscular Hemoglobin 31.3 pg (25-34); Mean Corpuscular Hgb Conc 33.7 g/dL (32-36); Mean Corpuscular Volume 92.9 fL (80-100); Mean Platelet Volume 8.5 fL (7.4-10.4); Monocytes # (auto) 0.28 K/uL (0.11-0.59); Monocytes % (auto) 4.9 %; Neutrophils # (auto) 3.82 K/uL (1.4-6.5); Neutrophils % (auto) 67.1 %; Platelet Count 296 K/uL (130-400); RDW Coefficient of Variation 12.9 % (11.5-14.5); Red Blood Count 4.79 M/uL (4.7-6.1); White Blood Count 5.69 K/uL (4.8-10.8)
--- NOTE | 2021-10-10 22:51 | CT Scan Report ---
CT SCAN OF THE FACIAL BONES WITHOUT IV CONTRAST CLINICAL HISTORY: Fall. Intoxication. COMPARISON STUDY: CT of the brain performed concurrently on 10/10/2021. TECHNIQUE: High-resolution CT scan of the facial bones is performed. Images are reviewed in the axia l, sagittal, and coronal planes. IV contrast was not administered for this examination. A dose lower ing technique was utilized adhering to the principles of ALARA. FINDINGS: The skeletal structures are well mineralized. There are comminuted bilateral nasal bone fra ctures which are mildly depressed. Overlying soft tissue edema is noted. The bony nasal septum appear s intact and is deviated to the right. No additional facial bone fracture is identified. The bony orb its are intact and the orbital contents are within normal limits. The zygomatic arches and pterygoid plates are preserved. The maxilla and mandible are intact. Mild degenerative change is noted in the t emporomandibular joints. There are no layering blood products within the paranasal sinuses. There is trace mucosal thickening in the left maxillary antrum. The remaining paranasal sinuses are clear. The re is a right mastoid effusion. Cerumen is noted in the right external auditory canal. The visualized calvarium and upper cervical spine are maintained. Partially imaged brain parenchyma is within janette l limits. There are scattered dental caries. A periapical lucency is seen involving a left mandibular incisor. IMPRESSION: 1. Bilateral nasal bone fractures as above. 2. No additional facial bone fracture is identified. ACT 112: Negative or not required by law. Electronically signed by: Robert Valentine M.D. 10/10/2021 10:49 PM
[2021-10-10 22:54] LABS: Albumin Level 3.7 gm/dl (3.4-5.0); BUN Creatinine Ratio 10.9 (10-20); Calcium 8.4 mg/dl (8.5-10.1); Creatinine Clr Calc Pharmacy 78.4 ml/min; Est GFR (African American) 94.9 ml/min; Est GFR (Non-African American) 81.9 ml/min; Potassium 3.6 mmol/L (3.5-5.1)
--- NOTE | 2021-10-10 22:54 | CT Scan Report ---
CT SCAN OF THE BRAIN WITHOUT IV CONTRAST CLINICAL HISTORY: Fall. Intoxication. COMPARISON STUDY: CT of the brain dated 06/13/2015. TECHNIQUE: Unenhanced axial CT scan of the brain is performed from the vertex to the skull base. A d ose lowering technique was utilized adhering to the principles of ALARA. CT DOSE: 1051.88 mGy.cm FINDINGS: Brain parenchyma: The brain parenchyma is normal in appearance. There is no hemorrhage, mass effect, or evidence of acute territorial ischemia by CT criteria. Chavez-white matter differentiation is preser jovani. No extra-axial fluid collection is seen. Ventricles, sulci, cisterns: Normal in configuration. Intracranial vasculature: There is mild atherosclerotic calcification of the cavernous carotid arteri es. Calvarium: There is no depressed calvarial fracture. There are bilateral nasal bone fractures appear Sinuses and mastoids: The visualized paranasal sinuses are clear. There is a right mastoid effusion. The left mastoid air cells are well pneumatized. Orbits: The bony orbits are grossly intact. IMPRESSION: No acute intracranial abnormality. ACT 112: Negative or not required by law. Electronically signed by: Robert Valentine M.D. 10/10/2021 10:53 PM
[2021-10-10 22:57] LABS: Albumin Globulin Ratio 0.9 (0.9-2); Bilirubin,Total 0.2 mg/dl (0.2-1); Globulin 4.1 gm/dl (2.5-4.0); Total Protein 7.9 gm/dl (6.4-8.2)
--- NOTE | 2021-10-10 22:58 | CT Scan Report ---
CT SCAN OF THE CERVICAL SPINE CLINICAL HISTORY: Fall. Intoxication. COMPARISON STUDY: No priors. TECHNIQUE: CT scan of the cervical spine is performed from the skull base to the upper thoracic spine . Images are reviewed in the axial, sagittal, and coronal planes. IV contrast was not administered fo r this examination. A dose lowering technique was utilized adhering to the principles of ALARA. FINDINGS: Skeletal structures: The skeletal structures are well mineralized. There is no evidence of fracture o r subluxation involving the cervical spine. Vertebral body height and alignment are maintained. There is straightening of the cervical lordosis. Anterior osteophytes are seen throughout. The odontoid pr ocess and lateral masses are intact. The atlantoaxial articulation is preserved noting productive deg enerative change. The spinous processes appear intact. There is moderate multilevel cervical spondylo sis. Uncovertebral and facet arthropathy contribute to neural foraminal stenosis at several levels. Intervertebral discs: There is moderate disc space narrowing at C6-C7. Mild disc space narrowing is s een at the remaining cervical levels. Central canal: Posterior disc osteophyte complexes at C4-C5, C5-C6, and C6-C7 likely contribute to mu ltilevel acquired compromise of the central canal. Soft tissues: The prevertebral and paraspinous soft tissues are within normal limits. Calvarium: The visualized calvarium at the skull base appears intact. Brain parenchyma: Partially visualized brain parenchyma at the skull base is within normal limits. Sinuses and mastoids: The visualized paranasal sinuses are clear. There is a right mastoid effusion. The left mastoid air cells are well pneumatized. Lung apices: Clear as visualized. IMPRESSION: 1. There is no evidence of fracture or subluxation involving the cervical spine. 2. Spondylotic change as above. ACT 112: Negative or not required by law. Electronically signed by: Robert Valentine M.D. 10/10/2021 10:57 PM
--- NOTE | 2021-10-10 23:40 | History & Physical Report ---
Date of Service October 10, 2021 Assessment & Plan (1) Hip dislocation, left: Plan: NPO except medications after midnight Acetaminophen 650 mg p.o. every 6 hours as needed mild pain or fever [place] 5/325, 1 p.o. every 6 hours as needed moderate pain [place] 5/325, 2 p.o. every 6 hours as needed severe pain Morphine sulfate 2 mg IV every 4 hours as needed moderate pain Morphine sulfate 4 mg IV every 4 hours as needed severe pain Zofran 4 mg IV every 6 hours as needed (2) Fall: Plan: Fall with head injury secondary to alcoholic intoxication- CT head negative, CT cervical spine negative, CT face showed bilateral nasal bone fractures. Hip x-rays noted shows dislocated left total hip arthroplasty (3) Head injury: Plan: CT head negative (4) Alcoholism: Plan: Alcoholism/alcoholic intoxication- Placed on CELIO protocol Folic acid 1 mg IV every morning Thiamine 500 mg IV every 8 hours (5) Alcoholic intoxication: Plan: Alcohol level 252.8 upon admission History of Present Illness Chief Complaint: The patient presents to the emergency department after complaining of left hip pain status post fall while intoxicated Primary Care Provider: NO PCP The patient is a 61-year-old male with a past medical history including alcoholism and history of left total hip arthroplasty, who presents emergency department with symptoms as above. The patient had a series of imaging studies performed due to his fall. CT scan of head without contrast was negative. CT scan of cervical spine was negative. CT scan of facial bones showed bilateral nasal bone fractures. Hip x-ray showed a dislocated left total hip arthroplasty. Abnormal laboratories: Glucose 125, and alcohol level 252.8. Patient was COVID-19 negative Allergies Allergy/AdvReac Type Severity Reaction Status Date / Time No Known Allergies Allergy Verified 10/10/21 22:09 Home Medications Medication Instructions Recorded Confirmed Type cholecalciferol (vitamin D3) 50 50 mcg PO DAILY 05/13/21 10/10/21 History mcg (2,000 unit) capsule (Vitamin D3) ibuprofen 200 mg tablet 400 mg PO Q6H PRN 05/13/21 10/10/21 History Past Med/Surg History Medical History (Updated 10/11/21 @ 02:08 by Shay Bernal MD) Alcoholism Hip dislocation, left Surgical History History of left hip replacement Social History Smoking Status: Current every day smoker Hx Alcohol Use: Yes Alcohol type: beer Hx Substance Use: No Preferred Language: Ivorian Communication Ability: Effective Sys Dir Required: No Beliefs That Will Affect Care: None Current Living Situation: Significant Other Feels Safe at Home: Yes Assistive Devices: None Review of Systems Review of Systems: Limited HPI and review of systems due to intoxication Physical Exam Physical Exam: The patient is drunk and sedated, blood on lips due to abrasion, in bed and in no acute distress. HEENT--PERRL, EOMI, mucous membranes and oropharynx dry. Neck--supple. No JVD. No bruits. Thyroid normal, trachea midline, no adenopathy. Heart--normal S1 and S2. No murmurs, rubs or gallops. Lungs--clear bilaterally, no respiratory distress, no accessory muscle use. Abdomen--normal bowel sounds and soft. Nontender. Nondistended, no hernias or masses, no organomegaly. Extremities--left hip dislocation. No cyanosis, clubbing or edema of extremities Dermatologic--normal skin turgor, normal color, no abnormal lymph nodes, no rash. Neurologic--cranial nerves II through XII grossly intact. Rheumatologic--limited exam Psychiatric--sedated/lethargic Results & Data Results & Data ([facility]) Vital Signs (Past 12 Hours) Vital Signs Temp Pulse Pulse Resp BP BP Pulse Ox 10/10/21 22:04 36.3 C L 106 H 20 180/108 H 94 10/10/21 21:44 36.3 C L 106 H 20 180/106 H 94 Laboratory Results Laboratory Results WBC 5.69 K/uL (4.8-10.8) 10/10/21 22:16 RBC 4.79 M/uL (4.7-6.1) 10/10/21 22:16 Hgb 15.0 g/dL (14.0-18.0) 10/10/21 22:16 Hct 44.5 % (42-52) 10/10/21 22:16 MCV 92.9 fL (80-100) 10/10/21 22:16 MCH 31.3 pg (25-34) 10/10/21 22:16 MCHC 33.7 g/dL (32-36) 10/10/21 22:16 RDW Std Deviation 44.0 fL (36.4-46.3) 10/10/21 22:16 RDW Coeff of Josue 12.9 % (11.5-14.5) 10/10/21 22:16 Plt Count 296 K/uL (130-400) 10/10/21 22:16 MPV 8.5 fL (7.4-10.4) 10/10/21 22:16 Immature Gran % (Auto) 0.2 % 10/10/21 22:16 Neut % (Auto) 67.1 % 10/10/21 22:16 Lymph % (Auto) 25.8 % 10/10/21 22:16 [place] % (Auto) 4.9 % 10/10/21 22:16 Eos % (Auto) 1.6 % 10/10/21 22:16 Baso % (Auto) 0.4 % 10/10/21 22:16 Neut # (Auto) 3.82 K/uL (1.4-6.5) 10/10/21 22:16 Lymph # (Auto) 1.47 K/uL (1.2-3.4) 10/10/21 22:16 [place] # (Auto) 0.28 K/uL (0.11-0.59) 10/10/21 22:16 Eos # (Auto) 0.09 K/uL (0-0.5) 10/10/21 22:16 Baso # (Auto) 0.02 K/uL (0-0.2) 10/10/21 22:16 Immature Gran # (Auto) 0.01 K/uL (0.00-0.02) 10/10/21 22:16 Sodium 140 mmol/L (136-145) 10/10/21 22:16 Potassium 3.6 mmol/L (3.5-5.1) 10/10/21 22:16 Chloride 108 mmol/L (98-107) H 10/10/21 22:16 Carbon Dioxide 23 mmol/L (21-32) 10/10/21 22:16 Anion Gap 9.0 (3-11) 10/10/21 22:16 BUN 11 mg/dl (7-18) 10/10/21 22:16 Creatinine 0.99 mg/dl (0.6-1.4) 10/10/21 22:16 Est Cr Clr Drug Dosing 78.4 ml/min 10/10/21 22:16 Est GFR ( Amer) 94.9 ml/min 10/10/21 22:16 Est GFR (Non-Af Amer) 81.9 ml/min 10/10/21 22:16 BUN/Creatinine Ratio 10.9 (10-20) 10/10/21 22:16 Glucose 125 mg/dl (70-99) H 10/10/21 22:16 Calcium 8.4 mg/dl (8.5-10.1) L 10/10/21 22:16 Total Bilirubin 0.2 mg/dl (0.2-1) 10/10/21 22:16 AST 26 U/L (15-37) 10/10/21 22:16 ALT 37 U/L (12-78) 10/10/21 22:16 Alkaline Phosphatase 50 U/L (45-117) 10/10/21 22:16 Total Protein 7.9 gm/dl (6.4-8.2) 10/10/21 22:16 Albumin 3.7 gm/dl (3.4-5.0) 10/10/21 22:16 Globulin 4.1 gm/dl (2.5-4.0) H 10/10/21 22:16 Albumin/Globulin Ratio 0.9 (0.9-2) 10/10/21 22:16 Ethyl Alcohol mg/dL 252.8 mg/dl (0-3) H 10/10/21 22:16 SARS-CoV-2, RNA, NAAT NEGATIVE (NEGATIVE) 10/10/21 23:08 Impressions Hip X-Ray 10/10/21 21:46 LEFT HIP 2 VIEWS CLINICAL HISTORY: Fall. Hip dislocation. FINDINGS: 2 portable views of the left hip are compared to study dated 07/25/2021. The skeletal structures appear osteopenic. A bipolar left hip arthroplasty is in place. There has been dislocation of the femoral component of the arthroplasty. Mild overlying soft tissue edema is noted. No fracture is identified. IMPRESSION: 1. Dislocated left hip arthroplasty. 2. No fracture is identified. Electronically signed by: Robert Valentine M.D. 10/10/2021 10:[address] 10/10/21 22:04 CT SCAN OF THE CERVICAL SPINE CLINICAL HISTORY: Fall. Intoxication. COMPARISON STUDY: No priors. TECHNIQUE: CT scan of the cervical spine is performed from the skull base to the upper thoracic spine. Images are reviewed in the axial, sagittal, and coronal pl anes. IV contrast was not administered for this examination. A dose lowering technique was utilized adhering to the principles of ALARA. FINDINGS: Skeletal structures: The skeletal structures are well mineralized. There is no evidence of fracture or subluxation involving the cervical spine. Vertebral body height and alignment are maintained. There is straightening of the cervical lordosis. Anterior osteophytes are seen throughout. The odontoid process and lateral masses are intact. The atlantoaxial articulation is preserved noting productive degenerative change. The spinous processes appear intact. There is moderate multilevel cervical spondylosis. Uncovertebral and facet arthropathy contribute to neural foraminal stenosis at several levels. Intervertebral discs: There is moderate disc space narrowing at C6-C7. Mild disc space narrowing is seen at the remaining cervical levels. Central canal: Posterior disc osteophyte complexes at C4-C5, C5-C6, and C6-C7 likely contribute to multilevel acquired compromise of the central canal. Soft tissues: The prevertebral and paraspinous soft tissues are within normal limits. Calvarium: The visualized calvarium at the skull base appears intact. Brain parenchyma: Partially visualized brain parenchyma at the skull base is within normal limits. Sinuses and mastoids: The visualized paranasal sinuses are clear. There is a right mastoid effusion. The left mastoid air cells are well pneumatized. Lung apices: Clear as visualized. IMPRESSION: 1. There is no evidence of fracture or subluxation involving the cervical spine. 2. Spondylotic change as above. ACT 112: Negative or not required by law. Electronically signed by: Robert Valentine M.D. 10/10/2021 10:[address] 10/10/21 22:04 CT SCAN OF THE FACIAL BONES WITHOUT IV CONTRAST CLINICAL HISTORY: Fall. Intoxication. COMPARISON STUDY: CT of the brain performed concurrently on 10/10/2021. TECHNIQUE: High-resolution CT scan of the facial bones is performed. Images are reviewed in the axial, sagittal, and coronal planes. IV contrast was not administered for this examination. A dose lowering technique was utilized adhering to the principles of ALARA. FINDINGS: The skeletal structures are well mineralized. There are comminuted bilateral nasal bone fractures which are mildly depressed. Overlying soft tissue edema is noted. The bony nasal septum appears intact and is deviated to the right. No additional facial bone fracture is identified. The bony orbits are intact and the orbital contents are within normal limits. The zygomatic arches and pterygoid plates are preserved. The maxilla and mandible are intact. Mild degenerative change is noted in the temporomandibular joints. There are no layering blood products within the paranasal sinuses. There is trace mucosal thickening in the left maxillary antrum. The remaining paranasal sinuses are clear. There is a right mastoid effusion. Cerumen is noted in the right external auditory canal. The visualized calvarium and upper cervical spine are maintained. Partially imaged brain parenchyma is within normal limits. There are scattered dental caries. A periapical lucency is seen involving a left mandibular incisor. IMPRESSION: 1. Bilateral nasal bone fractures as above. 2. No additional facial bone fracture is identified. ACT 112: Negative or not required by law. Electronically signed by: Robert Valentine M.D. 10/10/2021 10:[address] 10/10/21 22:04 CT SCAN OF THE BRAIN WITHOUT IV CONTRAST CLINICAL HISTORY: Fall. Intoxication. COMPARISON STUDY: CT of the brain dated 06/13/2015. TECHNIQUE: Unenhanced axial CT scan of the brain is performed from the vertex to the skull base. A dose lowering technique was utilized adhering to the principles of ALARA. CT DOSE: 1051.88 mGy.cm FINDINGS: Brain parenchyma: The brain parenchyma is normal in appearance. There is no hemorrhage, mass effect, or evidence of acute territorial ischemia by CT criteria. Chavez-white matter differentiation is preserved. No extra-axial fluid collection is seen. Ventricles, sulci, cisterns: Normal in configuration. Intracranial vasculature: There is mild atherosclerotic calcification of the cavernous carotid arteries. Calvarium: There is no depressed calvarial fracture. There are bilateral nasal bone fractures appear Sinuses and mastoids: The visualized paranasal sinuses are clear. There is a right mastoid effusion. The left mastoid air cells are well pneumatized. Orbits: The bony orbits are grossly intact. IMPRESSION: No acute intracranial abnormality. ACT 112: Negative or not required by law. Electronically signed by: Robert Valentine M.D. 10/10/2021 10:53 PM Code Status & VTE Plan Code Status Full code VTE Prophylaxis Plan VTE Prophylaxis will be ordered: Yes PG Care Time/CCT Total # of Minutes Spent Total Time Spent with Patient: Total time spent is greater than 50% in coordination of care (as documented) at patient's floor/unit and/or counseling patient: Coding Level of Care Code 56640 Initial Inpt Care Lvl 3 Diagnoses Hip dislocation, left S73.005A Encounter type: initial encounter Fall W19.XXXA Head injury S09.90XA Alcoholic intoxication F10.920 Complication of substance-induced condition: uncomplicated Alcoholism F10.20 (1) Hip dislocation, left Encounter type: initial encounter Qualified Code(s): S73.005A - Unspecified dislocation of left hip, initial encounter (2) Alcoholic intoxication Complication of substance-induced condition: uncomplicated Qualified Code(s): F10.920 - Alcohol use, unspecified with intoxication, uncomplicated
[2021-10-11] MEDS ORDERED: MoRPHine SULFATE 4 MG/ML 1 ML CARP\\VIAL ONE (00:48)
--- NOTE | 2021-10-11 00:53 | Emergency Department Note ---
History of Present Illness General Chief complaint: Hip Pain Stated complaint: Hip injury w/ rotation History of Present Illness Maximum Pain Intensity: 10 This 61-year-old with a history of recurrent hip dislocation presents to the ER complaining of fall with hip dislocation Location: Left hip Quality: Dislocated Severity: Moderate Duration: This evening Timing: Patient tripped Context: Patient's hip was dislocated and came in Modifying factors: better with rest; worse with activity Patient is alcoholic and drinks daily. He drank quite heavily today and was walking home tripped fell and injured his face and his hip. Patient has chest pain, dyspnea, abdominal pain, numbness, tingling or any other medical complaints. Dr. Summers from [facility] did his hip surgery. Home Medications Medication Instructions Recorded Confirmed Type cholecalciferol (vitamin D3) 50 50 mcg PO DAILY 05/13/21 10/10/21 History mcg (2,000 unit) capsule (Vitamin D3) ibuprofen 200 mg tablet 400 mg PO Q6H PRN 05/13/21 10/10/21 History Allergies Allergy/AdvReac Type Severity Reaction Status Date / Time No Known Allergies Allergy Verified 10/10/21 22:09 Past Med/Surg History Medical History Alcoholism Hip dislocation, left Surgical History History of left hip replacement Social History Smoking Status: Current every day smoker Hx Alcohol Use: Yes Alcohol type: beer Hx Substance Use: No Preferred Language: Hebrew Communication Ability: Effective Behavioral Health Consultant Required: No Beliefs That Will Affect Care: None Current Living Situation: Significant Other Feels Safe at Home: Yes Assistive Devices: None Review of Systems A total of 10 systems reviewed and were otherwise negative Physical Exam Vital Signs Vital Signs - 24 hr 10/10/21 21:44 10/10/21 22:04 10/10/21 23:46 Temperature 36.3 C L 36.3 C L Temperature Source Oral Oral Pulse Rate 106 H Pulse Rate [Apical] 106 H 100 H Pulse Rhythm Regular Pulse Rhythm [Apical] Regular Pulse Strength Normal Pulse Strength [Apical] Normal Respiratory Rate 20 20 19 Respiratory Effort / Characteristics Non-Labored Spontaneous Non-Labored Spontaneous Non-Labored Respiratory Depth Normal Normal Normal Respiratory Pattern Regular Regular Blood Pressure 180/108 H Blood Pressure [Right Arm] 180/106 H 162/99 H Blood Pressure Mean 132 Blood Pressure Mean [Right Arm] 130 120 Blood Pressure Position Lying Blood Pressure Position [Right Arm] Lying Pulse Oximetry 94 94 96 Oxygen Delivery Method Room Air Room Air Room Air Sepsis Recent Fever Within 48 Hours No Sepsis New/Unexplained Change in Mental Status N/A Sepsis Action Taken by Nursing No Action Required VITALS: Vitals are noted on the nurse's note and reviewed by myself. Vital signs mildly tachycardic. GENERAL: White male with EtOH odor intoxicated, in no acute distress, nondiaphoretic, well-developed well-nourished. SKIN: Lip abrasion, the rest of the skin was without rashes, erythema, edema, or bruising. There is no tenting of the skin. Capillary reflex less than 2 seconds. HEAD: Normocephalic atraumatic. EARS: External auditory canals clear, tympanic membranes pearly chavez without erythema or effusion bilaterally. EYES: Pupils equal round and reactive to light and accommodation. Conjunctivae without injection, sclerae without icterus. Extraocular movements intact. NOSE: Patent, turbinates without inflammation or discharge. No sinus tenderness. MOUTH: Mucous membranes moist. Pharynx without erythema or exudate. Uvula midline. Airway patent. Tongue does not deviate. NECK: Supple without nuchal rigidity. No lymphadenopathy. No thyromegaly. Cervical spine is nontender. No JVD. HEART: Regular rate and rhythm LUNGS: Clear to auscultation bilaterally without wheezes, rales or rhonchi. No retractions or accessory muscle use. ABDOMEN: Positive bowel sounds x 4. Normal tympanic percussion. Soft, nontender, without masses or organomegaly. Rodrigues sign negative. No guarding or rebound tenderness. No CVA tenderness MUSCULOSKELETAL: No muscle atrophy, erythema, or edema noted. No thoracic or lumbar tenderness on exam. Obvious left hip dislocation. Full range of motion of all other extremities. Pedal pulses +2 equal present bilaterally. NEURO: Patient was alert and oriented to person place and time. Normal sensation to light and sharp touch. No focal neurological deficits. Course Administered Medications Discontinued Medications Fentanyl Citrate (Fentanyl Citrate 100 Mcg/2 Ml Vial) 100 mcg IV NOW STA Stop: 10/10/21 22:11 Last Admin: 10/10/21 22:45 Dose: 100 mcg Documented by: [id number] Morphine Sulfate (Morphine Sulfate 4 Mg/Ml 1 Ml Carp\Vial) Confirm Administered Dose 4 mg .ROUTE .STK-MED ONE Stop: 10/11/21 00:49 Last Admin: 10/11/21 00:50 Dose: 4 mg Documented by: [id number] Medical Decision Making Medical Records Attestation: I reviewed the patient's medical records. Home Medications Current Medication List: was personally reviewed by me Laboratory Data Result diagrams: 10/10/21 22:16 10/10/21 22:16 Lab Results 10/10/21 10/10/21 10/10/21 Range/Units 22:16 22:16 22:16 WBC 5.69 (4.8-10.8) K/uL RBC 4.79 (4.7-6.1) M/uL Hgb 15.0 (14.0-18.0) g/dL Hct 44.5 (42-52) % MCV 92.9 (80-100) fL MCH 31.3 (25-34) pg MCHC 33.7 (32-36) g/dL RDW Std Deviation 44.0 (36.4-46.3) fL RDW Coeff of Josue 12.9 (11.5-14.5) % Plt Count 296 (130-400) K/uL MPV 8.5 (7.4-10.4) fL Immature Gran % (Auto) 0.2 % Neut % (Auto) 67.1 % Lymph % (Auto) 25.8 % Stephenson % (Auto) 4.9 % Eos % (Auto) 1.6 % Baso % (Auto) 0.4 % Neut # (Auto) 3.82 (1.4-6.5) K/uL Lymph # (Auto) 1.47 (1.2-3.4) K/uL Stephenson # (Auto) 0.28 (0.11-0.59) K/uL Eos # (Auto) 0.09 (0-0.5) K/uL Baso # (Auto) 0.02 (0-0.2) K/uL Immature Gran # (Auto) 0.01 (0.00-0.02) K/uL Sodium 140 (136-145) mmol/L Potassium 3.6 (3.5-5.1) mmol/L Chloride 108 H (98-107) mmol/L Carbon Dioxide 23 (21-32) mmol/L Anion Gap 9.0 (3-11) BUN 11 (7-18) mg/dl Creatinine 0.99 (0.6-1.4) mg/dl Est Cr Clr Drug Dosing 78.4 ml/min Est GFR ( Amer) 94.9 ml/min Est GFR (Non-Af Amer) 81.9 ml/min BUN/Creatinine Ratio 10.9 (10-20) Glucose 125 H (70-99) mg/dl Calcium 8.4 L (8.5-10.1) mg/dl Total Bilirubin 0.2 (0.2-1) mg/dl AST 26 (15-37) U/L ALT 37 (12-78) U/L Alkaline Phosphatase 50 (45-117) U/L Total Protein 7.9 (6.4-8.2) gm/dl Albumin 3.7 (3.4-5.0) gm/dl Globulin 4.1 H (2.5-4.0) gm/dl Albumin/Globulin Ratio 0.9 (0.9-2) Ethyl Alcohol mg/dL 252.8 H (0-3) mg/dl SARS-CoV-2, RNA, NAAT (NEGATIVE) 10/10/21 Range/Units 23:08 WBC (4.8-10.8) K/uL RBC (4.7-6.1) M/uL Hgb (14.0-18.0) g/dL Hct (42-52) % MCV (80-100) fL MCH (25-34) pg MCHC (32-36) g/dL RDW Std Deviation (36.4-46.3) fL RDW Coeff of Josue (11.5-14.5) % Plt Count (130-400) K/uL MPV (7.4-10.4) fL Immature Gran % (Auto) % Neut % (Auto) % Lymph % (Auto) % Stephenson % (Auto) % Eos % (Auto) % Baso % (Auto) % Neut # (Auto) (1.4-6.5) K/uL Lymph # (Auto) (1.2-3.4) K/uL Stephenson # (Auto) (0.11-0.59) K/uL Eos # (Auto) (0-0.5) K/uL Baso # (Auto) (0-0.2) K/uL Immature Gran # (Auto) (0.00-0.02) K/uL Sodium (136-145) mmol/L Potassium (3.5-5.1) mmol/L Chloride (98-107) mmol/L Carbon Dioxide (21-32) mmol/L Anion Gap (3-11) BUN (7-18) mg/dl Creatinine (0.6-1.4) mg/dl Est Cr Clr Drug Dosing ml/min Est GFR ( Amer) ml/min Est GFR (Non-Af Amer) ml/min BUN/Creatinine Ratio (10-20) Glucose (70-99) mg/dl Calcium (8.5-10.1) mg/dl Total Bilirubin (0.2-1) mg/dl AST (15-37) U/L ALT (12-78) U/L Alkaline Phosphatase (45-117) U/L Total Protein (6.4-8.2) gm/dl Albumin (3.4-5.0) gm/dl Globulin (2.5-4.0) gm/dl Albumin/Globulin Ratio (0.9-2) Ethyl Alcohol mg/dL (0-3) mg/dl SARS-CoV-2, RNA, NAAT NEGATIVE (NEGATIVE) Imaging Data Attestation: I personally reviewed and interpreted this imaging study as follows: Radiologist's Impression: Hip X-Ray 10/10/21 21:46 LEFT HIP 2 VIEWS CLINICAL HISTORY: Fall. Hip dislocation. FINDINGS: 2 portable views of the left hip are compared to study dated 07/25/2021. The skeletal structures appear osteopenic. A bipolar left hip arthroplasty is in place. There has been dislocation of the femoral component of the arthroplasty. Mild overlying soft tissue edema is noted. No fracture is identified. IMPRESSION: 1. Dislocated left hip arthroplasty. 2. No fracture is identified. Electronically signed by: Robert Valentine M.D. 10/10/2021 10:[address] 10/10/21 22:04 CT SCAN OF THE CERVICAL SPINE CLINICAL HISTORY: Fall. Intoxication. COMPARISON STUDY: No priors. TECHNIQUE: CT scan of the cervical spine is performed from the skull base to the upper thoracic spine. Images are reviewed in the axial, sagittal, and coronal planes. IV contrast was not administered for this examination. A dose lowering technique was utilized adhering to the principles of ALARA. FINDINGS: Skeletal structures: The skeletal structures are well mineralized. There is no evidence of fracture or subluxation involving the cervical spine. Vertebral body height and alignment are maintained. There is straightening of the cervical lordosis. Anterior osteophytes are seen throughout. The odontoid process and lateral masses are intact. The atlantoaxial articulation is preserved noting productive degenerative change. The spinous processes appear intact. There is m oderate multilevel cervical spondylosis. Uncovertebral and facet arthropathy contribute to neural foraminal stenosis at several levels. Intervertebral discs: There is moderate disc space narrowing at C6-C7. Mild disc space narrowing is seen at the remaining cervical levels. Central canal: Posterior disc osteophyte complexes at C4-C5, C5-C6, and C6-C7 likely contribute to multilevel acquired compromise of the central canal. Soft tissues: The prevertebral and paraspinous soft tissues are within normal limits. Calvarium: The visualized calvarium at the skull base appears intact. Brain parenchyma: Partially visualized brain parenchyma at the skull base is within normal limits. Sinuses and mastoids: The visualized paranasal sinuses are clear. There is a right mastoid effusion. The left mastoid air cells are well pneumatized. Lung apices: Clear as visualized. IMPRESSION: 1. There is no evidence of fracture or subluxation involving the cervical spine. 2. Spondylotic change as above. ACT 112: Negative or not required by law. Electronically signed by: Robert Valentine M.D. 10/10/2021 10:[address] 10/10/21 22:04 CT SCAN OF THE FACIAL BONES WITHOUT IV CONTRAST CLINICAL HISTORY: Fall. Intoxication. COMPARISON STUDY: CT of the brain performed concurrently on 10/10/2021. TECHNIQUE: High-resolution CT scan of the facial bones is performed. Images are reviewed in the axial, sagittal, and coronal planes. IV contrast was not administered for this examination. A dose lowering technique was utilized adhering to the principles of ALARA. FINDINGS: The skeletal structures are well mineralized. There are comminuted bilateral nasal bone fractures which are mildly depressed. Overlying soft tissue edema is noted. The bony nasal septum appears intact and is deviated to the right. No additional facial bone fracture is identified. The bony orbits are intact and the orbital contents are within normal limits. The zygomatic arches and pterygoid plates are preserved. The maxilla and mandible are intact. Mild degenerative change is noted in the temporomandibular joints. There are no layering blood products within the paranasal sinuses. There is trace mucosal thickening in the left maxillary antrum. The remaining paranasal sinuses are clear. There is a right mastoid effusion. Cerumen is noted in the right external auditory canal. The visualized calvarium and upper cervical spine are maintained. Partially imaged brain parenchyma is within normal limits. There are scattered dental caries. A periapical lucency is seen involving a left ma ndibular incisor. IMPRESSION: 1. Bilateral nasal bone fractures as above. 2. No additional facial bone fracture is identified. ACT 112: Negative or not required by law. Electronically signed by: Robert Valentine M.D. 10/10/2021 10:[address] 10/10/21 22:04 CT SCAN OF THE BRAIN WITHOUT IV CONTRAST CLINICAL HISTORY: Fall. Intoxication. COMPARISON STUDY: CT of the brain dated 06/13/2015. TECHNIQUE: Unenhanced axial CT scan of the brain is performed from the vertex to the skull base. A dose lowering technique was utilized adhering to the p rinciples of ALARA. CT DOSE: 1051.88 mGy.cm FINDINGS: Brain parenchyma: The brain parenchyma is normal in appearance. There is no hemorrhage, mass effect, or evidence of acute territorial ischemia by CT criteria. Chavez-white matter differentiation is preserved. No extra-axial fluid collection is seen. Ventricles, sulci, cisterns: Normal in configuration. Intracranial vasculature: There is mild atherosclerotic calcification of the cavernous carotid arteries. Calvarium: There is no depressed calvarial fracture. There are bilateral nasal bone fractures appear Sinuses and mastoids: The visualized paranasal sinuses are clear. There is a right mastoid effusion. The left mastoid air cells are well pneumatized. Orbits: The bony orbits are grossly intact. IMPRESSION: No acute intracranial abnormality. ACT 112: Negative or not required by law. Electronically signed by: Robert Valentine M.D. 10/10/2021 10:53 PM [facility] Narrative Prior records reviewed and summarized above. Triage Nursing notes reviewed. Additional history obtained from nursing. The patient's history was concerning for hip injury. Differential diagnosis: Etiologies such as fracture, dislocation, neurovascular compromise, compartment syndrome, soft tissue injury, as well as others were entertained. Physical examination: Consistent with an isolated hip injury. ER treatment provided: IV lock Fentanyl NPO Bedrest On reassessment the patient felt better. Diagnostics interpreted by me: The labs revealed no worrisome leukocytosis, elevated alcohol negative Covid Imaging studies: Xrays as above Myself and my attending attempted multiple times to reduce the hip and was unsuccessful. Patient has required going to the OR for hip reduction in the past. The patient has a hip dislocation. We were unable to reduce it. Ortho was consulted and recommends admission and they will take him to the OR in the morning and reduce it. Patient was admitted to the medical service. Stable labs. He is an alcoholic. Elevated alcohol. Consultation: A consultation was placed with Dr. Trevino orthopedics. The case was discussed and diagnostics were reviewed. He recommends medical admission and will reduce it in the morning.. I spoke to medicine and the hospitalist accepts and will admit the patient. The chart was completed utilizing [employer] Speech voice recognition software. Grammatical errors, random word insertions, pronoun errors, and incomplete sentences are an occassional consequence of this system due to software limitations, ambient noise, and hardware issues. Any formal questions or concerns about the content, text, or information contained within the body of this dictation should be directly addressed to the physician assistant store manager for clarification. Attending Attestation: Michelle Renteria MD independently saw and evaluated this patient and agree with history and physical is otherwise documented by the physician assistant store manager. See their note for full details. Attempted with the physician assistant store manager to reduce the dislocated left arthroplasty of the hip but with multiple attempts unable. Patient is intoxicated not in any state for sedation at this time and required. He will need to be sober before this can be considered. To be admitted pending this and further orthopedic care. Patient does have intact sensation and pulse in the left foot. Impression & Plan Hip dislocation, left, Alcoholic intoxication, Head injury, Fall Discharge Plan Visit Data Chief Complaint: Hip Pain Stated Complaint: Hip injury w/ rotation ED Provider: Darin Renteria ED Midlevel Provider: Heavenly Atkinson Discharge Problem: Hip dislocation, left, Alcoholic intoxication, Head injury, Fall Patient Disposition: Admitted As Inpatient Condition: Good Forms Stand Alone Forms: [employer] Prescriptions Prescriptions: No Action ibuprofen 200 mg Tablet 400 mg PO Q6H PRN (Reason: Pain) RF: 0 cholecalciferol (vitamin D3) [Vitamin D3] 50 mcg (2,000 unit) Capsule 50 mcg PO DAILY RF: 0 Referrals Referrals: PCP,NO [Primary Care Provider] - Discharge Problem: Hip dislocation, left Qualifiers: Encounter type: initial encounter Qualified Code(s): S73.005A - Unspecified dislocation of left hip, initial encounter Alcoholic intoxication Qualifiers: Complication of substance-induced condition: uncomplicated Qualified Code(s): F10.920 - Alcohol use, unspecified with intoxication, uncomplicated
[2021-10-11] MEDS ORDERED: LORazepam 2 MG/4 ML VIAL IV PRN (01:45)
[2021-10-11] MEDS ORDERED: LORazepam 3 MG/6 ML VIAL IV PRN (01:45)
[2021-10-11] MEDS ORDERED: ACETAMINOPHEN 325 MG TAB PO PRN (01:45)
[2021-10-11] MEDS ORDERED: MoRPHine SULFATE 4 MG/ML 1 ML CARP\\VIAL IV PRN (01:45)
[2021-10-11] MEDS ORDERED: MoRPHine SULFATE 2 MG/ML CARP IV PRN (01:45)
[2021-10-11] MEDS ORDERED: NSS + 20MEQ KCL 20 MEQ/1,000 ML BAG IV SCH (01:45)
[2021-10-11] MEDS ORDERED: ONDANSETRON INJ 2 MG/ML 2 ML VIAL IV PRN ×2 (01:45→10:20)
[2021-10-11] MEDS ORDERED: LORazepam 1 MG/2 ML VIAL IV PRN (01:45)
[2021-10-11] MEDS ORDERED: METOPROLOL TARTRATE 1 MG/ML VIAL IV PRN (01:45)
[2021-10-11] MEDS ORDERED: ATIVAN IV ALCOHOL WITHDRAWL IV PRN (01:45)
[2021-10-11] MEDS ORDERED: HYDROCODONE/ACETAMOPHEN 5/325MG TAB PO PRN ×2 (01:45)
[2021-10-11] MEDS: FOLIC ACID 1 MG in SYRINGE 9.8 ML IV SCH ×2 (02:33→12:55)
[2021-10-11] MEDS: THIAMINE HCL 500 MG in SODIUM CHLORIDE 0.9% 50 ML IV SCH ×2 (02:33→12:55)
--- NOTE | 2021-10-11 07:11 | Anesthesiology Consultation ---
Date of Service October 11, 2021 Assessment & Plan (1) Encounter for pre-operative examination: Chart Review Chart Review: freelance data entry initiated History Surgery Operation Date: 10/11/21 12:00 Proposed Procedures p Closed Reduction Extremity(Left) - Francis Mascorro M.D. Height/Weight Height: 5 ft 9 in Weight: 81 kg Allergies Allergy/AdvReac Type Severity Reaction Status Date / Time No Known Allergies Allergy Verified 10/10/21 22:09 Medications Home Medications Medication Instructions Recorded Confirmed Last Taken cholecalciferol (vitamin D3) 50 50 mcg PO DAILY 05/13/21 10/10/21 05/13/21 mcg (2,000 unit) capsule (Vitamin D3) ibuprofen 200 mg tablet 400 mg PO Q6H PRN 05/13/21 10/10/21 Unknown Active Medications Generic Name Dose Route Start Last Admin Trade Name Freq PRN Reason Stop Dose Admin Potassium Chloride/Sodium Chloride 20 meq in 1,000 mls @ 80 mls/hr 10/11/21 01:45 10/11/21 02:33 Normal Saline W/20 Meq Kcl IV 11/10/21 01:44 80 mls/hr .[id number] ERICKA Administration Thiamine HCl 500 mg/ Sodium 55 mls @ 208 mls/hr 10/11/21 02:00 10/11/21 02:33 Chloride IV 11/10/21 01:59 Infused Q8H ERICKA Infusion Folic Acid 1 mg/ Syringe 10 mls @ 5 mls/min 10/11/21 01:45 10/11/21 02:33 IV 11/10/21 01:44 5 mls/min QAM ERICKA Administration Past Medical History Medical History Alcoholism Hip dislocation, left Past Surgical History Surgical History History of left hip replacement Social History Smoking Status: Current every day smoker Hx Alcohol Use: Yes Alcohol type: beer alcohol intake frequency: 3 or more drinks per day Hx Substance Use: Yes substance use type: marijuana Last Used Substance: Hours (ago) Physical Exam Vital Signs Last Vital Signs Temp 97.3 F L 10/10/21 22:04 Pulse 98 H 10/11/21 06:10 Resp 18 10/11/21 06:10 BP 160/96 H 10/11/21 06:10 Pulse Ox 94 10/11/21 06:10 Testing Laboratory Results 10/10/21 22:16 10/10/21 22:16 Electrocardiogram Date: 12/17/20 Findings: + NSR @ (72 bpm)
[2021-10-11 08:03] LABS: Basophils # (auto) 0.01 K/uL (0-0.2); Basophils % (auto) 0.1 %; Eosinophils # (auto) 0.03 K/uL (0-0.5); Eosinophils % (auto) 0.3 %; Hematocrit (blood only) 41.6 % (42-52); Hemoglobin 14.3 g/dL (14.0-18.0); Immature Granulocytes # (auto) 0.03 K/uL (0.00-0.02); Immature Granulocytes % (auto) 0.3 %; Lymphocytes # (auto) 1.57 K/uL (1.2-3.4); Lymphocytes % (auto) 16.6 %; Mean Corpuscular Hemoglobin 31.4 pg (25-34); Mean Corpuscular Hgb Conc 34.4 g/dL (32-36); Mean Corpuscular Volume 91.2 fL (80-100); Mean Platelet Volume 8.5 fL (7.4-10.4); Monocytes # (auto) 0.74 K/uL (0.11-0.59); Monocytes % (auto) 7.8 %; Neutrophils # (auto) 7.09 K/uL (1.4-6.5); Neutrophils % (auto) 74.9 %; Platelet Count 308 K/uL (130-400); RDW Coefficient of Variation 12.9 % (11.5-14.5); RDW Standard Deviation 43.3 fL (36.4-46.3); Red Blood Count 4.56 M/uL (4.7-6.1); White Blood Count 9.47 K/uL (4.8-10.8)
[2021-10-11 08:31] LABS: Albumin Globulin Ratio 0.9 (0.9-2); Albumin Level 3.5 gm/dl (3.4-5.0); BUN Creatinine Ratio 10.3 (10-20); Bilirubin,Total 0.3 mg/dl (0.2-1); Calcium 8.2 mg/dl (8.5-10.1); Creatinine Clr Calc Pharmacy 92.3 ml/min; Est GFR (African American) 109.5 ml/min; Est GFR (Non-African American) 94.5 ml/min; Globulin 4.1 gm/dl (2.5-4.0); Potassium 4.2 mmol/L (3.5-5.1); Total Protein 7.6 gm/dl (6.4-8.2)
[2021-10-11] MEDS ORDERED: CHOLECALCIFEROL 1,000 UNITS 25 MCG TAB PO SCH (09:00)
[2021-10-11] MEDS ORDERED: fentaNYL citrate 100 MCG/2 ML VIAL IV PRN (10:20)
[2021-10-11] MEDS ORDERED: ATROPINE SULFATE 0.1 MG/ML 10ML SYR IV PRN (10:20)
[2021-10-11] MEDS ORDERED: ePHEDrine sulfate 50 MG/ML AMP IV PRN (10:20)
[2021-10-11] MEDS ORDERED: MIDAZOLAM HCL 1 MG/ML 2ML VIAL ONE (10:29)
[2021-10-11] MEDS ORDERED: fentaNYL citrate 100 MCG/2 ML VIAL ONE ×2 (10:29→10:56)
[2021-10-11] MEDS ORDERED: LIDOCAINE 2% 2 ML VIAL/AMP(20MG/ML) INFIL ONE (10:31)
[2021-10-11] MEDS ORDERED: PROPOFOL IV EMULSION 10 MG/ML 20 ML VIAL IV ONE ×2 (10:31→11:05)
[2021-10-11] MEDS ORDERED: ONDANSETRON INJ 2 MG/ML 2 ML VIAL ONE (10:31)
--- NOTE | 2021-10-11 10:57 | Orthopedic Consultation ---
Date of Consultation October 11, 2021 Assessment & Plan (1) Failure of left total hip arthroplasty with dislocation of hip: He has a dislocated left total hip arthroplasty. I recommend urgent reduction. Risks include irreducible dislocation, periprosthetic fracture, or displacement of the implants. Any of these would require further surgical treatment. He understands and wishes to proceed. History of Present Illness Reason for Consultation: Left hip dislocation Attending Physician: Ruel Griffin MD History of Present Illness Mr. Ford is a 61-year-old male who previously had a left total hip arthroplasty by Dr. Cleaning. He was significantly intoxicated, fell, and dislocated his hip. This is very similar to an incident he had in May. He had immediate pain and ambulated bear weight. Allergies Allergy/AdvReac Type Severity Reaction Status Date / Time No Known Allergies Allergy Verified 10/10/21 22:09 Home Medications Medication Instructions Recorded Confirmed Type cholecalciferol (vitamin D3) 50 50 mcg PO DAILY 05/13/21 10/10/21 History mcg (2,000 unit) capsule (Vitamin D3) ibuprofen 200 mg tablet 400 mg PO Q6H PRN 05/13/21 10/10/21 History Patient History Medical History Alcoholism Hip dislocation, left Surgical History History of left hip replacement Social History Smoking Status: Current every day smoker Hx Alcohol Use: Yes Alcohol type: beer Hx Substance Use: Yes Last Used Substance: Hours (ago) Preferred Language: Romanian Communication Ability: Effective Machine Cage Maker Required: No Beliefs That Will Affect Care: None Current Living Situation: Other Feels Safe at Home: Yes Assistive Devices: None Physical Exam Physical Exam: Left hip shows no abrasions or lacerations. His left lower extremity is shortened and internally rotated. Motor and sensory functions intact distally. Foot is warm well perfused. Results & Data ([facility]) Vital Signs (Past 12 Hours) Vital Signs Temp Pulse Pulse Resp BP Pulse Ox Pulse Ox 10/11/21 10:03 103 H 10/11/21 09:50 37 C 109 H 18 183/105 H 96 10/11/21 08:20 37.4 C 104 H 18 169/98 H 96 10/11/21 08:13 37.4 C 102 H 18 169/98 H 96 10/11/21 06:10 98 H 18 160/96 H 94 10/11/21 05:52 107 H 19 93 10/11/21 04:00 96 H 18 169/108 H 97 10/11/21 01:56 95 10/11/21 01:55 101 H 17 153/99 H 95 10/10/21 23:46 100 H 19 162/99 H 96 Diagnostic Findings Left leg x-rays were reviewed. They show a dislocated total hip arthroplasty. No fractures are seen.
--- NOTE | 2021-10-11 10:57 | History & Physical Bridge Note ---
Date of Service October 11, 2021 History & Physical Bridge Note I have examined the patient, reviewed the History & Physical and in the interval since the performance of the History & Physical I have noted the following changes of clinical significance: no changes noted
--- NOTE | 2021-10-11 11:13 | Post Operative Brief Note ---
Immediate Post Op Note v1 Date of Surgery October 11, 2021 Pre & Post Diagnosis Operation Date: 10/11/21 12:00 Left hip dislocation of total hip arthroplasty I identified the patient and participated in the time-out.: Yes Procedure Operation Date: 10/11/21 12:00 Left hip reduction of dislocated total hip arthroplasty Surgeon Francis Mascorro Knife Setter Grinder Machine None Estimated Blood Loss 0 Findings Consistent with Post-Op Diagnosis
--- NOTE | 2021-10-11 11:17 | Operative Report ---
Post Operative Report Pre & Post Diagnosis Operation Date: 10/11/21 12:00 Left hip dislocation of total hip arthroplasty I identified the patient and participated in the time-out.: Yes Procedure Operation Date: 10/11/21 12:00 Left hip reduction of dislocated total hip arthroplasty (41501) - Francis Mascorro MD Surgeon Francis Mascorro Decoration Checker None Estimated Blood Loss 0 Findings Consistent with Post-Op Diagnosis Specimens None Drains None Anesthesia Type MAC Complications none Disposition Disposition: Recovery Room Indications Mr. Bhatti is a 61-year-old male who previously had a left total hip arthroplasty earlier this year by Dr. Cleaning. He became significantly intoxicated, fell, and dislocated his left total hip arthroplasty. He had a very similar incident in May. He had immediate pain, deformity, and inability to bear weight on his left leg. Closed reduction of his dislocation was recommended. Risks, benefits, and alternatives of procedure were explained in detail. He understood and wished to proceed. Description of Procedure Sedation was then provided by the anesthesia staff. After adequate anesthesia had been obtained, I had an resident care assistant hold counter pressure on the ASIS well I pulled longitudinal traction on the femur with the hip and knee in flexion. I internally rotated and adducted the hip while pulling longitudinal traction, and was able to visualize and palpate reduction of the hip joint. I then extended the leg and examined leg lengths. Leg length was restored to normal. Postreduction x-rays confirmed concentric reduction of the total hip arthroplasty, without evidence of fracture or displacement of the prosthetic components. I attest to the content of the Intraoperative Record and any orders documented therein. Any exceptions are noted below.
--- NOTE | 2021-10-11 11:29 | Anesthesiology Progress Note ---
Date of Service October 11, 2021 Anesthesia Post Procedure Vital Signs Vital Signs: Temp Pulse Pulse Resp BP BP Pulse Ox 10/11/21 11:20 101 H 15 132/88 100 10/11/21 11:13 98.8 F 101 H 16 111/75 99 10/11/21 10:03 103 H 10/11/21 09:50 98.6 F 109 H 18 183/105 H 96 10/11/21 08:20 99.3 F 104 H 18 169/98 H 96 10/11/21 08:13 99.3 F 102 H 18 169/98 H 96 10/11/21 06:10 98 H 18 160/96 H 94 10/11/21 05:52 107 H 19 93 10/11/21 04:00 96 H 18 169/108 H 97 10/11/21 01:56 10/11/21 01:55 101 H 17 153/99 H 95 10/10/21 23:46 100 H 19 162/99 H 96 10/10/21 22:04 97.3 F L 106 H 20 180/108 H 94 10/10/21 21:44 97.3 F L 106 H 20 180/106 H 94 Pulse Ox 10/11/21 11:20 10/11/21 11:13 10/11/21 10:03 10/11/21 09:50 10/11/21 08:20 10/11/21 08:13 10/11/21 06:10 10/11/21 05:52 10/11/21 04:00 10/11/21 01:56 95 10/11/21 01:55 10/10/21 23:46 10/10/21 22:04 10/10/21 21:44 Pain Intensity Left Hip: Pain Intensity: 9 Transfer of Care Handoff Completed per policy Notes Mental Status: alert / awake / arousable and participated in evaluation Patient Amnestic to Procedure: Yes Nausea / Vomiting: adequately controlled Pain: adequately controlled Airway Patency, RR, SpO2: stable & adequate BP & HR: stable & adequate Hydration State: stable & adequate Anesthetic Complications: no major complications apparent and Pt Satisfied with anesthetic care
--- NOTE | 2021-10-11 12:05 | Fluoroscopy Report ---
FL hip LT 2-3V CLINICAL HISTORY: LT HIP DISLOCATION/CLOSED REDUCTION IN OR COMPARISON STUDY: 10/10/2021 FLUOROSCOPY TIME: 6 seconds. FLUOROSCOPIC IMAGES: 2 FINDINGS: Compared to the previous study, there has been reduction of previously identified dislocati on of the patient's left total hip replacement. IMPRESSION: Status post reduction of left hip prosthetic dislocation ACT 112: Negative or not required by law. Electronically signed by: Juno Tucker M.D. 10/11/2021 12:03 PM
--- NOTE | 2021-10-11 16:28 | Discharge Summary ---
Date of Service October 11, 2021 Admission HPI Per Admitting Provider The patient is a 61-year-old male with a past medical history including alcoholism and history of left total hip arthroplasty, who presents emergency department with symptoms as above. The patient had a series of imaging studies performed due to his fall. CT scan of head without contrast was negative. CT scan of cervical spine was negative. CT scan of facial bones showed bilateral nasal bone fractures. Hip x-ray showed a dislocated left total hip arthroplasty. Abnormal laboratories: Glucose 125, and alcohol level 252.8. Patient was COVID-19 negative Principal Diagnosis Dislocated left hip Discharge Exam Constitutional WD/WN, vitals as above Eyes EOM intact bilaterally; no conjunctival abnormality ENMT external ear and nose normal, oropharynx normal Neck trachea midline, no thyromegaly normal visual inspection Respiratory normal respiratory effort, lungs clear to auscultation no respiratory distress Cardiovascular RRR, no murmur, no edema Gastrointestinal (Abdomen) Inspection/Auscultation: abdomen normal to inspection; abdomen not distended Musculoskeletal no cyanosis or clubbing, extremities motor strength 5/5 Skin no rashes, warm and dry Neurologic moves all extremities and awake Psychiatric Orientation: alert, oriented to person and cooperative Discharge Data Allergies Allergy/AdvReac Type Severity Reaction Status Date / Time No Known Allergies Allergy Verified 10/10/21 22:09 Consultations 10/10/21 23:14 ED Decision to Admit Stat 10/11/21 07:47 Consult Orthopedic Surgery Routine Procedures Performed Operation Date: 10/11/21 12:00 Actual Procedures p Closed Reduction Left Hip(Left) - Francis Mascorro M.D. Ordered Studies 10/10/21 22:04 CT cervical spine wo con Stat CT facial bones wo con Stat CT head/brain wo con Stat 10/11/21 [place] hip LT 2-3V Routine Hospital Course (1) Hip dislocation, left: Reduced by Dr. Mascorro in the OR. Ready for discharge after. Patient was given hip precautions in discharge paperwork. (2) Fall: Fall with head injury secondary to alcoholic intoxication- CT head negative, CT cervical spine negative, CT face showed bilateral nasal bone fractures. Hip x-rays noted shows dislocated left total hip arthroplasty (3) Head injury: CT head negative (4) Alcoholism: Alcoholism/alcoholic intoxication- Placed on CELIO protocol -> No indication of withdrawal while inpatient. Patient had no interest in quitting and requested discharge. Stable for discharge. (5) Alcoholic intoxication: Alcohol level 252.8 upon admission Total Time Total Time Spent Total Time Spent (In Minutes): 45 Discharge Plan Discharge Items Patient Disposition: Home - Self-Care Reason For Visit: DISLOCATION L GIUSEPPE, INTOXICATED, ALCOHOLISM Discharge Diagnosis: Left hip dislocation of total hip arthroplasty Condition on Discharge: Good Activity: Per Instructions section Non-emergency contact: Primary Care Provider and Surgeon Call non-emergency contact if: your symptoms worsen Follow-up/Referrals: PCP,NO [Primary Care Provider] - Diet: Regular Addtl Attending Provider Instructions: Things to Watch Out For -Go to the Emergency Room if you have sudden onset of chest pain, shortness of breath, or uncontrollable pain. -For routine questions regarding your hip surgery, call the orthopedics clinic at [phone] during regular business hours (8am-5pm). For urgent issues after regular business hours, you may call the clinic to be connected to the on-call physician. Weight Bearing -You may weight bear as tolerated on your operative leg. Use a walker for support and balance. Total Hip Precautions -Do not cross your legs, flex your hip past 90 degrees, or internally rotate your hip. -Keep the left knee immobilizer in place at all times until you follow-up in orthopedic surgery clinic. -Keep the abduction pillow in place whenever you are in bed. You may remove it when you are out of bed. -If you hear a clunk and your leg is suddenly much shorter and turned inward compared to your other leg, come to the Emergency Department immediately. Followup -You will need to follow-up with Dr. Cleaning in orthopedic surgery clinic in 2-3 weeks. Please call [facility] [place] at [phone] to make an appointment. Pending Studies at Discharge: No Stand-Alone Forms: My [employer], Smoking Cessation Medications and DC Order Prescriptions: Continued ibuprofen 200 mg Tablet 400 mg PO Q6H PRN (Reason: Pain) RF: 0 cholecalciferol (vitamin D3) [Vitamin D3] 50 mcg (2,000 unit) Capsule 50 mcg PO DAILY RF: 0 Discharge Orders: Discharge Order (Routine); Ordered 10/11/21 Ordered By: Ruel Griffin Admission Data Admit Date/Time: 10/10/21 23:40 Attending Provider: Ruel Griffin Admit Provider: Shay Bernal Primary Care Provider: PCP,NO Other Providers: Ruel Griffin ; Shay Bernal ; Francis Mascorro Other Interventions: Discharge Summary Assessment (RN) Last Done: 10/11/21 13:46 Coding Level of Care Code D/C DAY MANAGEMENT >30 MINS Diagnoses Hip dislocation, left S73.005A Encounter type: initial encounter Fall W19.XXXA Head injury S09.90XA Alcoholism F10.20 Alcoholic intoxication F10.920 Complication of substance-induced condition: uncomplicated
== END 2021-10-11 14:31 | disposition home or self-care (01) | DRG 538 ==
LOC: ED 21:33 → SUATTDRO 23:40 → INTOOBSV 23:40 → EDINP 23:40 → 2N 10-11 09:42
DX: W18.09XA Striking against other object with subsequent fall, initial encounter; S73.005A Unspecified dislocation of left hip, initial encounter; F10.920 Alcohol use, unspecified with intoxication, uncomplicated; F17.210 Nicotine dependence, cigarettes, uncomplicated; S09.90XA Unspecified injury of head, initial encounter

== ENCOUNTER 2022-05-02 21:51 | Observation (INO) ==
[2022-05-02 22:35] LABS: Basophils # (auto) 0.02 K/uL (0-0.2); Basophils % (auto) 0.3 %; Eosinophils # (auto) 0.12 K/uL (0-0.5); Hematocrit (blood only) 42.5 % (42-52); Hemoglobin 14.7 g/dL (14.0-18.0); Immature Granulocytes # (auto) 0.01 K/uL (0.00-0.02); Immature Granulocytes % (auto) 0.2 %; Lymphocytes # (auto) 1.69 K/uL (1.2-3.4); Lymphocytes % (auto) 28.8 %; Mean Corpuscular Hemoglobin 31.7 pg (25-34); Mean Corpuscular Hgb Conc 34.6 g/dL (32-36); Mean Corpuscular Volume 91.8 fL (80-100); Mean Platelet Volume 8.7 fL (7.4-10.4); Monocytes # (auto) 0.36 K/uL (0.11-0.59); Monocytes % (auto) 6.1 %; Neutrophils # (auto) 3.66 K/uL (1.4-6.5); Neutrophils % (auto) 62.6 %; Platelet Count 273 K/uL (130-400); RDW Coefficient of Variation 12.7 % (11.5-14.5); RDW Standard Deviation 42.5 fL (36.4-46.3); Red Blood Count 4.63 M/uL (4.7-6.1); White Blood Count 5.86 K/uL (4.8-10.8)
[2022-05-02 22:44] LABS: Partial Thromboplastin Time 28.4 Seconds (21.0-31.0); Prothrombin Time 10.5 Seconds (9.0-12.0)
[2022-05-02 22:55] LABS: Albumin Globulin Ratio 1.6 (0.9-2); Albumin Level 4.5 gm/dl (3.4-5.0); BUN Creatinine Ratio 13.1 (10-20); Bilirubin,Total 0.3 mg/dl (0.2-1.0); Calcium 9.2 mg/dl (8.5-10.1); Creatinine Clr Calc Pharmacy 71.6 ml/min; Est GFR (African American) 85.8 ml/min; Globulin 2.9 gm/dl (2.5-4.0); Potassium 3.8 mmol/L (3.5-5.1); Total Protein 7.4 gm/dl (6.0-8.3)
[2022-05-02] MEDS ORDERED: SODIUM CHLORIDE 0.9% 1000ML 1,000 ML IV SCH (23:45)
[2022-05-02] MEDS ORDERED: ONDANSETRON INJ 2 MG/ML 2 ML VIAL IV STA (23:46)
[2022-05-02] MEDS ORDERED: fentaNYL citrate 100 MCG/2 ML VIAL IV ONE (23:46)
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
[2022-05-03 00:54] LABS: Appearance Urine Clear (Clear); Bilirubin Urine Negative (Negative); Blood Urine Negative (Negative); Color Urine Yellow; Glucose Urine UA Negative (Negative); Ketones Urine Negative (Negative); Leukocyte Esterase Urine Negative (Negative); Nitrite Urine Negative (Negative); Protein Urine Negative (Negative); Specific Gravity Urine 1.005 (1.000-1.030); Urobilinogen Urine Negative (Negative)
[2022-05-03 01:23] LABS: Amphetamines+Metham, Urine Neg (Neg); Barbiturates, Urine Neg (Neg); Benzodiazepine, Urine Neg (Neg); Cocaine, Urine Neg (Neg); MDMA (Ecstacy), Urine Neg (Neg); Methadone, Urine Neg (Neg); Opiate, Urine Neg (Neg); Phencyclidine, Urine Neg (Neg)
[2022-05-03] MEDS ORDERED: ONDANSETRON INJ 2 MG/ML 2 ML VIAL IV PRN ×2 (01:50→18:08)
[2022-05-03] MEDS ORDERED: ACETAMINOPHEN 325 MG TAB PO PRN (01:50)
[2022-05-03] MEDS ORDERED: LORazepam 1 MG TAB PO PRN (01:50)
[2022-05-03] MEDS ORDERED: MoRPHine SULFATE 2 MG/ML CARP IV PRN (02:40)
--- NOTE | 2022-05-03 06:50 | XRay Report ---
XR chest 1V portable HISTORY: 62 years-old Male Hip dislocation acute chest trauma status post fall COMPARISON: 12/17/2020 TECHNIQUE: Supine AP view of the chest FINDINGS: The cardiomediastinal and hilar silhouettes are within normal limits. No pneumothorax, pleural effusi on, airspace consolidation or overt pulmonary edema. Probable nipple shadow projects of the left lung base. Eventration of the right hemidiaphragm. Degenerative changes of the shoulders and spine. IMPRESSION: No acute process. ACT 112: Negative or not required by law. The above report was generated using voice recognition software. It may contain grammatical, syntax o r spelling errors. Electronically signed by: Newton Dalton M.D. 05/03/2022 6:48 AM
--- NOTE | 2022-05-03 07:20 | CT Scan Report ---
CT OF THE HEAD WITHOUT CONTRAST CLINICAL HISTORY: fall, etoh COMPARISON STUDY: Head CT October 10, 2021. TECHNIQUE: Helical axial images of the head were obtained without IV contrast. Automated exposure con trol was utilized for the study. A dose lowering technique was utilized adhering to the principles o f ALARA. FINDINGS: No acute intracranial hemorrhage, midline shift or mass effect is present. White matter hyp odensity suggests small vessel disease. The ventricular system is unremarkable. The basal cisterns ar e patent. No extra-axial collections are present. There are no findings to suggest acute dural sinus thrombosis or acute territorial infarct. No significant calvarial abnormalities are present. Visualiz ed portions of the sinuses and mastoid air cells are clear. IMPRESSION: 1. No acute intracranial findings. No change in appearance of the brain. 2. Acute calvarial fracture. ACT 112: Negative or not required by law. Electronically signed by: Jimenez Cason M.D. 05/03/2022 7:19 AM
--- NOTE | 2022-05-03 07:21 | XRay Report ---
XR hip LT min 2V CLINICAL HISTORY: L hip pain, recurrent dislocations COMPARISON: Left hip radiographs April 05, 2022. FINDINGS: Note is made of posterior superior dislocation of the femoral component of the left hip ar throplasty with respect to the acetabular cup. No acute fracture is identified. IMPRESSION: Dislocated femoral component of the left hip arthroplasty. No fracture. ACT 112: Negative or not required by law. Electronically signed by: Jimenez Cason M.D. 05/03/2022 7:20 AM
--- NOTE | 2022-05-03 08:26 | CT Scan Report ---
CT OF THE CERVICAL SPINE WITHOUT CONTRAST CLINICAL HISTORY: Fall. COMPARISON STUDY: Cervical spine CT October 10, 2021. TECHNIQUE: Helical axial images of the cervical spine were obtained without IV contrast. Sagittal a nd coronal reconstructions were viewed. Automated exposure control was utilized for the study. A do se lowering technique was utilized adhering to the principles of ALARA. FINDINGS: There is straightening of the normal cervical lordosis. Vertebral body heights are maintain ed. No acute cervical spine fracture or subluxation is present. There is no prevertebral edema. Facet joints are intact. Severe multilevel facet arthrosis is present. There is moderate multilevel disc s pace narrowing and extensive anterior osteophytosis of the mid to lower cervical spine. Right mastoid effusions are similar to prior CT. IMPRESSION: No acute cervical spine fracture or subluxation. ACT 112: Negative or not required by law. Electronically signed by: Jimenez Cason M.D. 05/03/2022 8:25 AM
[2022-05-03] MEDS: MoRPHine SULFATE 4 MG/ML 1 ML CARP\\VIAL IV PRN ×2 (08:28→13:37)
[2022-05-03] MEDS: THIAMINE HCL 100 MG TAB PO SCH (08:34)
[2022-05-03] MEDS ORDERED: FOLIC ACID 1 MG TAB PO SCH (09:00)
--- NOTE | 2022-05-03 09:24 | Anesthesiology Consultation ---
Date of Service May 03, 2022 Assessment & Plan (1) Encounter for pre-operative examination: Chart Review Chart Review: entry level management initiated History Surgery Operation Date: 05/03/22 10:45 Proposed Procedures p Closed Reduction Left Total Hip Arthroplasty - Rod Marks MD Height/Weight Height: 5 ft 9 in Weight: 78.2 kg Allergies Allergy/AdvReac Type Severity Reaction Status Date / Time No Known Allergies Allergy Verified 05/02/22 23:13 Medications Home Medications Medication Instructions Recorded Confirmed Last Taken No Known Home Medications 05/02/22 05/02/22 Unknown Active Medications Generic Name Dose Route Start Last Admin Trade Name Freq PRN Reason Stop Dose Admin Folic Acid 1 mg 05/03/22 09:00 05/03/22 08:34 Folic Acid 1 Mg Tab PO 06/02/22 08:59 1 mg QAM ERICKA Administration Morphine Sulfate 4 mg 05/03/22 02:40 05/03/22 08:28 Morphine Sulfate 4 Mg/Ml 1 Ml Carp\Vial IV 05/17/22 02:39 4 mg Q3H PRN Administration Pain (6,7,8,9,10) Thiamine HCl 100 mg 05/03/22 09:00 05/03/22 08:34 Thiamine Hcl 100 Mg Tab PO 06/02/22 08:59 100 mg QAM ERICKA Administration NPO Date Last Intake of Fluids: 05/03/22 Time Last Intake of Fluids: 02:10 Date Last Intake of Solids: 05/03/22 Time Last Intake of Solids: 02:10 Past Medical History Medical History Alcoholism Hip dislocation, left Past Surgical History Surgical History History of left hip replacement Social History Smoking Status: Current every day smoker tobacco type: cigarettes Do You Dip or Chew Tobacco: No Hx Alcohol Use: Yes Alcohol type: beer alcohol intake frequency: 3 or more drinks per day Hx Substance Use: Yes substance use type: marijuana Last Used Substance: Hours (ago) Physical Exam Vital Signs Last Vital Signs Temp 98.2 F 05/03/22 07:42 Pulse 94 H 05/03/22 07:42 Resp 18 05/03/22 07:42 BP 163/94 H 05/03/22 07:42 Pulse Ox 96 05/03/22 07:42 Testing Laboratory Results 05/02/22 22:23 05/02/22 22:23 PT 10.5 Seconds (9.0-12.0) 05/02/22 22: INR 1.0 (0.9-1.1) 05/02/22 22: APTT 28.4 Seconds (21.0-31.0) 05/02/22 22:23 Urine Color Yellow 05/03/22 00:39 Urine Appearance Clear (Clear) 05/03/22 00:39 Urine pH 5.0 (4.5-7.5) 05/03/22 00:39 Ur Specific [place] 1.005 (1.000-1.030) 05/03/22 00:39 Urine Protein Negative (Negative) 05/03/22 00:39 Urine Glucose (UA) Negative (Negative) 05/03/22 00:39 Urine Ketones Negative (Negative) 05/03/22 00:39 Urine Nitrite Negative (Negative) 05/03/22 00:39 Ur Leukocyte Esterase Negative (Negative) 05/03/22 00:39 Electrocardiogram Date: 05/02/22 Findings: + NSR @ (97 bpm) Chest X-Ray Date: 05/02/22 Findings: + NAD
--- NOTE | 2022-05-03 14:08 | Electrocardiogram Report ---
Test Reason : Blood Pressure : / mmHG Vent. Rate : 097 BPM Atrial Rate : 097 BPM P-R Int : 190 ms QRS Dur : 090 ms QT Int : 360 ms P-R-T Axes : 062 084 057 degrees QTc Int : 457 ms Normal sinus rhythm Normal ECG When compared with ECG of 17-DEC-2020 10:48, No significant change was found Confirmed by Wili Pina ([id number]) on 05/03/2022 2:08:31 PM Referred By: REFERRED SELF Confirmed By:Wili Pina
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
[2022-05-03] MEDS ORDERED: hydrALAZINE HCL 20 MG/ML VIAL IV PRN (16:23)
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
[2022-05-03] MEDS ORDERED: LIDOCAINE 2% 2 ML VIAL/AMP(20MG/ML) INFIL ONE (17:47)
[2022-05-03] MEDS ORDERED: PROPOFOL IV EMULSION 10 MG/ML 20 ML VIAL IV ONE (17:47)
[2022-05-03] MEDS ORDERED: MIDAZOLAM HCL 1 MG/ML 2ML VIAL ONE (17:48)
[2022-05-03] MEDS ORDERED: fentaNYL citrate 100 MCG/2 ML VIAL ONE (17:48)
--- NOTE | 2022-05-03 17:57 | History & Physical Bridge Note ---
Date of Service May 03, 2022 History & Physical Bridge Note I have examined the patient, reviewed the History & Physical and in the interval since the performance of the History & Physical I have noted the following changes of clinical significance: no changes noted
[2022-05-03] MEDS ORDERED: HYDROmorphone INJ 2 MG/ML SYR/VIAL IV PRN (18:08)
[2022-05-03] MEDS ORDERED: fentaNYL citrate 100 MCG/2 ML VIAL IV PRN (18:08)
[2022-05-03] MEDS ORDERED: ePHEDrine sulfate 50 MG/ML AMP IV PRN (18:08)
[2022-05-03] MEDS ORDERED: ATROPINE SULFATE 0.1 MG/ML 10ML SYR IV PRN (18:08)
[2022-05-03] MEDS ORDERED: ONDANSETRON INJ 2 MG/ML 2 ML VIAL ONE (18:24)
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
--- NOTE | 2022-05-03 18:41 | Fluoroscopy Report ---
FL hip LT 2-3V CLINICAL HISTORY: LT HIP CR TECHNIQUE: 5 views were obtained with the C-arm in the OR with the above procedure. Total fluoroscopy time was 7.1 seconds. Total skin dose was 1.77 mGy. Comparison: None available at the time of this dictation. FINDINGS/IMPRESSION: Intraoperative images were obtained of both reduction of the left hip. Please correlate with intraoperative fluoroscopy and operative report. ACT 112: Negative or not required by law. Electronically signed by: Curt Velasco M.D. 05/03/2022 6:40 PM
[2022-05-03] MEDS ORDERED: bisacodyL 10 MG SUPP PR PRN (19:23)
[2022-05-03] MEDS ORDERED: MAGNESIUM HYDROXIDE SUSP 30 ML UDC PO PRN (19:23)
[2022-05-03] MEDS: SODIUM CHLORIDE 0.9% 1000ML 1,000 ML IV SCH (19:23)
[2022-05-03] MEDS ORDERED: NALOXONE HCL 0.4 MG/1 ML VIAL/CARP IV PRN (19:23)
[2022-05-03] MEDS: DOCUSATE SODIUM 100 MG CAP PO SCH (21:42)
[2022-05-04] MEDS: SODIUM CHLORIDE 0.9% 1000ML 1,000 ML IV SCH (06:24)
--- NOTE | 2022-05-04 08:10 | Orthopedic Progress Note ---
Date of Service May 04, 2022 Assessment & Plan (1) Hip dislocation, left: Plan: Postop day 1 status post closed reduction of left dislocated GIUSEPPE I discussed the case with Dr. Read who performed a closed reduction on the patient last night. He states that it was fairly difficult getting the hip back in. We discussed the use of an abduction brace is a possibility. I then contacted Dr. Cleaning about the patient's revision surgery that was scheduled for June. Dr. Fish is currently out of the country on vacation and wanted me in the direction of Dr. Cummings's partner. Dr. Cummings was happy to see the patient this and plan on doing his revision surgery sooner than later. After discussing this with the patient, he would like to hold off on the brace. He will follow his hip precautions and knows what he can and cannot do. We discussed that he will have to follow these precautions work until seen by Dr. Cummings to discuss his upcoming surgery. Patient is agreeable to do that. We will have PT and OT stop by and see him to go over his hip precautions. We will try and schedule an appointment with Dr. Cummings for this and then hopefully have the patient discharged home today. Admission and Anticipated Discharge Date Admission Date: May 03, 2022 Subjective Postop day 1 Patient sitting up in bed awake and alert. No complaints this morning. Pain is controlled. States that his hip feels back to normal. Physical Exam Physical Exam: Abduction pillow present between the legs. Leg lengths appear equal. Very gentle range of motion without discomfort. Hip appears located. Calves are soft and nontender. Neurovascular is intact. Toes are mobile. Results & Data ([facility]) Vital Signs (Past 12 Hours) Vital Signs Temp Pulse Resp BP Pulse Ox 05/04/22 07:56 36.6 C 84 20 148/87 H 96 05/04/22 04:19 36.4 C L 78 16 153/90 H 97 05/03/22 22:49 36.8 C 86 16 149/84 H 97 05/03/22 20:25 88 17 150/90 H 98 (1) Hip dislocation, left Encounter type: initial encounter Qualified Code(s): S73.005A - Unspecified dislocation of left hip, initial encounter
[2022-05-04] MEDS: THIAMINE HCL 100 MG TAB PO SCH (08:14)
[2022-05-04] MEDS: DOCUSATE SODIUM 100 MG CAP PO SCH (08:14)
[2022-05-04 12:17] LABS: Basophils # (auto) 0.01 K/uL (0-0.2); Basophils % (auto) 0.1 %; Eosinophils # (auto) 0.12 K/uL (0-0.5); Eosinophils % (auto) 1.3 %; Hematocrit (blood only) 45.5 % (42-52); Hemoglobin 15.5 g/dL (14.0-18.0); Immature Granulocytes # (auto) 0.03 K/uL (0.00-0.02); Immature Granulocytes % (auto) 0.3 %; Lymphocytes # (auto) 1.24 K/uL (1.2-3.4); Lymphocytes % (auto) 13.9 %; Mean Corpuscular Hemoglobin 31.6 pg (25-34); Mean Corpuscular Hgb Conc 34.1 g/dL (32-36); Mean Corpuscular Volume 92.7 fL (80-100); Mean Platelet Volume 8.9 fL (7.4-10.4); Monocytes # (auto) 0.84 K/uL (0.11-0.59); Monocytes % (auto) 9.4 %; Neutrophils # (auto) 6.71 K/uL (1.4-6.5); Platelet Count 315 K/uL (130-400); RDW Coefficient of Variation 12.7 % (11.5-14.5); RDW Standard Deviation 43.2 fL (36.4-46.3); Red Blood Count 4.91 M/uL (4.7-6.1); White Blood Count 8.95 K/uL (4.8-10.8)
[2022-05-04 12:40] LABS: BUN Creatinine Ratio 11.7 (10-20); Calcium 9.2 mg/dl (8.5-10.1); Creatinine Clr Calc Pharmacy 74.4 ml/min; Est GFR (African American) 89.8 ml/min; Est GFR (Non-African American) 77.5 ml/min; Potassium 4.3 mmol/L (3.5-5.1)
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
[2022-05-04 23:27] LABS: Marijuana Quant, GCMS Urine 154 ng/mL (<5)
== END 2022-05-04 15:03 | disposition home or self-care (01) ==
LOC: ED 21:51 → 3W 21:51 → SUATTDRO 05-03 00:47 → 3W 05-03 01:51